=== PATIENT | female | born 1985 | race Caucasian/White ===

== ENCOUNTER → 2024-03-27 11:19 | Outpatient (REF) | payer BC, SELFPAY ==
[2024-03-27 12:28] LABS: % Basophils 0.6 % (0-2); % Eosinophils 3.3 % (0-6); % Immature Granulocytes 0.2 % (0-0.5); % Lymphocytes 34.1 % (20.5-51.1); % Neutrophils 51.8 % (42.2-75.2); Absolute Eosinophils 0.2 10^3/uL (0-0.7); Absolute Lymphocytes 1.8 10^3/uL (1.2-3.4); Absolute Monocytes 0.5 10^3/uL (0.1-0.6); Absolute Neutrophils 2.8 10^3/uL (1.4-6.5); Hematocrit 34.3 % (37.0-47.0); Hemoglobin 10.9 g/dL (12.0-16.0); Mean Corp Hgb Conc. 31.8 g/dL (33.0-37.0); Mean Corpuscular Hgb 23.7 pg (27.0-31.0); Mean Corpuscular Volume 74.6 fL (81.0-99.0); Mean Platelet Volume 9.5 fL (7.4-10.4); Nucleated Red Blood Cells % 0 %; Platelet Count 381 10^3/uL (130-400); Red Cell Dist. Width 16.5 % (11.5-14.5); White Blood Cell Count 5.4 10^3/uL (4.8-10.8)
[2024-03-27 13:31] LABS: ALT (SGPT) 63 U/L (0-35); AST (SGOT) 50 U/L (14-36); Albumin 4.3 g/dl (3.5-5.0); Alkaline Phosphatase 83 U/L (38-126); Blood Urea Nitrogen 13 mg/dl (7-17); Calcium 9.1 mg/dl (8.4-10.2); Carbon Dioxide 22 mmol/L (22-30); Chloride 108 mmol/L (98-107); Glucose 80 mg/dl (70-99); HDL Cholesterol 67 mg/dl; Iron 37 ug/dl (37-170); LDL Cholesterol, Calculated 37 mg/dl; Potassium 4.5 mmol/L (3.5-5.1); Sodium 139 mmol/L (135-145); Total Bilirubin 0.3 mg/dl (0.2-1.3); Total Cholesterol 117 mg/dl (50-199); Total Protein 6.6 g/dl (6.3-8.2); Triglyceride 66 mg/dl (10-149); Very Low Density Lipoprotein 13 mg/dl (0-30); eGFR > 60.00
[2024-03-27 13:40] LABS: Percent Saturation 7 % (20-50); Total Iron Binding Capacity 476 ug/dl (265-497)
[2024-03-27 13:41] LABS: Vitamin D, 25-OH*** 95.2 ng/mL (30-80)
[2024-03-27 13:55] LABS: TSH Reflex To Free T4 0.04 uIU/ml (0.47-4.68)
[2024-03-27 13:58] LABS: Ferritin 4.5 ng/ml (6.24-137)
[2024-03-27 14:20] LABS: Free T4 0.88 ng/dl (0.78-2.19)
[2024-03-27 14:29] LABS: Folate > 20.0 ng/ml (2.76-20); Vitamin B12 > 1000 pg/ml (239-931)
== END ==
LOC: REG 11:19
PROVIDERS: ATTENDING PHYSICIAN Nurse Practitioner Family
DX: Z00.00 Encounter for general adult medical examination without abnormal findings (principal); Z98.84 Bariatric surgery status; F41.1 Generalized anxiety disorder; E61.1 Iron deficiency; F51.01 Primary insomnia; L65.9 Nonscarring hair loss, unspecified
CPT/HCPCS: 36415; 80053; 80061; 82306; 82607; 82728; 82746; 83540; 83550; 84439; 84443; 85025

== ENCOUNTER → 2024-04-16 07:36 | Outpatient (REF) | payer BC, SELFPAY ==
[2024-04-16 08:50] LABS: ALT (SGPT) 63 U/L (0-35); AST (SGOT) 53 U/L (14-36); Albumin 4.1 g/dl (3.5-5.0); Alkaline Phosphatase 84 U/L (38-126); Blood Urea Nitrogen 15 mg/dl (7-17); Calcium 9.2 mg/dl (8.4-10.2); Carbon Dioxide 21 mmol/L (22-30); Chloride 107 mmol/L (98-107); Glucose 83 mg/dl (70-99); Potassium 4.3 mmol/L (3.5-5.1); Sodium 137 mmol/L (135-145); Total Bilirubin 0.2 mg/dl (0.2-1.3); Total Protein 6.5 g/dl (6.3-8.2); eGFR > 60.00
[2024-04-16 09:20] LABS: TSH Reflex To Free T4 0.03 uIU/ml (0.47-4.68)
[2024-04-16 09:48] LABS: Free T4 1.18 ng/dl (0.78-2.19)
[2024-04-16 17:15] LABS: Hepatitis B Surface Antigen Negative (Negative)
[2024-04-16 19:08] LABS: Hepatitis C Antibody Negative (Negative)
[2024-04-18 11:59] LABS: Thyroglobulin Antibodies <0.9 IU/mL (0.0-4.0)
[2024-04-18 19:44] LABS: EBV-VCA IgM Antibodies 18.7 U/mL (0.0-43.9)
[2024-04-18 19:54] LABS: CMV IgM Antibody <8.0 AU/mL (<=29.9)
== END ==
LOC: REG 07:36
PROVIDERS: ATTENDING PHYSICIAN Nurse Practitioner Family; REFERRING PHYSICIAN Internal Medicine Hematology & Oncology
DX: R79.89 Other specified abnormal findings of blood chemistry (principal)
CPT/HCPCS: 36415; 80053; 84439; 84443; 86376; 86645; 86665; 86800; 86803; 87340

== ENCOUNTER → 2024-04-17 13:04 | Outpatient (REF) | payer BC, SELFPAY ==
[2024-04-17 13:37] LABS: % Basophils 0.7 % (0-2); % Eosinophils 6.9 % (0-6); % Immature Granulocytes 0.2 % (0-0.5); % Lymphocytes 36.7 % (20.5-51.1); % Monocytes 12.4 % (1.7-9.3); % Neutrophils 43.1 % (42.2-75.2); Absolute Eosinophils 0.4 10^3/uL (0-0.7); Absolute Monocytes 0.7 10^3/uL (0.1-0.6); Absolute Neutrophils 2.4 10^3/uL (1.4-6.5); Hematocrit 33.8 % (37.0-47.0); Hemoglobin 10.7 g/dL (12.0-16.0); Mean Corp Hgb Conc. 31.7 g/dL (33.0-37.0); Mean Corpuscular Hgb 23.2 pg (27.0-31.0); Mean Corpuscular Volume 73.2 fL (81.0-99.0); Mean Platelet Volume 9.4 fL (7.4-10.4); Nucleated Red Blood Cells % 0 %; Platelet Count 381 10^3/uL (130-400); Red Blood Cell Count 4.62 10^6/uL (4.20-5.40); Red Cell Dist. Width 16.4 % (11.5-14.5); White Blood Cell Count 5.5 10^3/uL (4.8-10.8)
[2024-04-17 14:30] LABS: Iron < 20 ug/dl (37-170)
[2024-04-17 14:31] LABS: Total Iron Binding Capacity 456 ug/dl (265-497)
[2024-04-17 14:40] LABS: FSH 2.5 mIU/ml
[2024-04-17 14:55] LABS: Estradiol 399.9 pg/ml
== END ==
LOC: REG 13:04
PROVIDERS: ATTENDING PHYSICIAN Internal Medicine Hematology & Oncology; FAMILY PHYSICIAN Nurse Practitioner Family
DX: D50.9 Iron deficiency anemia, unspecified (principal)
CPT/HCPCS: 36415; 82024; 82670; 82728; 83001; 83002; 83540; 83550; 85025

== ENCOUNTER 2024-05-08 10:24 | Outpatient (RCR) | payer BC, SELFPAY ==
[2024-05-01 14:12] VITALS: BP 112/68
[2024-05-01] MEDS: INJECTAFER 265 MG IV (14:27)
[2024-05-08 10:25] VITALS: BP 122/76
[2024-05-08] MEDS: INJECTAFER 265 MG IV (10:51)
[2024-05-08 11:29] VITALS: BP 112/66
== END 2024-05-16 23:59 | disposition home or self-care (01) ==
LOC: OID 10:24
PROVIDERS: ATTENDING PHYSICIAN Internal Medicine Hematology & Oncology
DX: D50.9 Iron deficiency anemia, unspecified (principal)
CPT/HCPCS: 96365; J1439

== ENCOUNTER → 2024-05-13 10:00 | Outpatient (REF) | payer BC, SELFPAY ==
[2024-05-13 12:59] LABS: Glucose 76 mg/dl (70-99)
[2024-05-13 13:14] LABS: Beta HCG Quantitative < 2.39 mIU/ml; Prolactin 6.7 ng/ml (3.0-18.6)
[2024-05-13 13:29] LABS: Testosterone, Total 19.2 ng/dl
[2024-05-13 13:52] LABS: Glycohemoglobin (HgbA1c) 4.6 % (4.0-5.6)
[2024-05-14 23:55] LABS: Sex Hormone Binding Globulin 140 nmol/L (25-122)
[2024-05-14 23:58] LABS: DHEA Sulfate 100 ug/dL (61-337)
== END ==
LOC: REG 10:00
PROVIDERS: ATTENDING PHYSICIAN Obstetrics & Gynecology; FAMILY PHYSICIAN Nurse Practitioner Family; OTHER PHYSICIAN Physician Assistant; REFERRING PHYSICIAN Internal Medicine Hematology & Oncology
DX: N91.4 Secondary oligomenorrhea (principal)
CPT/HCPCS: 36415; 82627; 82947; 83036; 84146; 84270; 84403; 84702

== ENCOUNTER → 2024-06-05 07:43 | Outpatient (REF) | payer BC, SELFPAY | LOC: RAD 07:43 | PROVIDERS: ATTENDING PHYSICIAN Nurse Practitioner Family; FAMILY PHYSICIAN Nurse Practitioner Family; REFERRING PHYSICIAN Family Medicine | DX: R79.89 Other specified abnormal findings of blood chemistry (principal) | CPT/HCPCS: 76700 ==

== ENCOUNTER → 2024-06-24 09:21 | Outpatient (REF) | payer BC, SELFPAY ==
[2024-06-24 10:59] LABS: Hematocrit 42.9 % (37.0-47.0); Hemoglobin 14.2 g/dL (12.0-16.0); Mean Corp Hgb Conc. 33.1 g/dL (33.0-37.0); Mean Corpuscular Hgb 28.6 pg (27.0-31.0); Mean Corpuscular Volume 86.3 fL (81.0-99.0); Mean Platelet Volume 9.8 fL (7.4-10.4); Platelet Count 286 10^3/uL (130-400); Red Blood Cell Count 4.97 10^6/uL (4.20-5.40); White Blood Cell Count 6.1 10^3/uL (4.8-10.8)
[2024-06-24 11:24] LABS: Iron 92 ug/dl (37-170)
[2024-06-24 11:25] LABS: % Basophils 0.2 % (0-2); % Eosinophils 2.6 % (0-6); % Immature Granulocytes 0.2 % (0-0.5); % Lymphocytes 43.1 % (20.5-51.1); % Monocytes 9.2 % (1.7-9.3); % Neutrophils 44.7 % (42.2-75.2); Absolute Eosinophils 0.2 10^3/uL (0-0.7); Absolute Lymphocytes 2.6 10^3/uL (1.2-3.4); Absolute Monocytes 0.6 10^3/uL (0.1-0.6); Absolute Neutrophils 2.7 10^3/uL (1.4-6.5); Nucleated Red Blood Cells % 0 %
[2024-06-24 11:35] LABS: Percent Saturation 27 % (20-50); Total Iron Binding Capacity 335 ug/dl (265-497)
[2024-06-24 12:01] LABS: Ferritin 43.5 ng/ml (6.24-137)
== END ==
LOC: REG 09:21
PROVIDERS: ATTENDING PHYSICIAN Internal Medicine Hematology & Oncology
DX: D50.9 Iron deficiency anemia, unspecified (principal)
CPT/HCPCS: 36415; 82728; 83540; 83550; 85025

== ENCOUNTER → 2024-07-02 12:41 | Outpatient (REF) | payer BC, SELFPAY ==
[2024-07-02 14:04] LABS: % Basophils 0.4 % (0-2); % Eosinophils 1.7 % (0-6); % Immature Granulocytes 0.2 % (0-0.5); % Lymphocytes 44.4 % (20.5-51.1); % Monocytes 9.1 % (1.7-9.3); % Neutrophils 44.2 % (42.2-75.2); Absolute Eosinophils 0.1 10^3/uL (0-0.7); Absolute Lymphocytes 2.3 10^3/uL (1.2-3.4); Absolute Monocytes 0.5 10^3/uL (0.1-0.6); Absolute Neutrophils 2.3 10^3/uL (1.4-6.5); Hematocrit 42.5 % (37.0-47.0); Mean Corp Hgb Conc. 32.9 g/dL (33.0-37.0); Mean Corpuscular Hgb 27.7 pg (27.0-31.0); Mean Corpuscular Volume 84.2 fL (81.0-99.0); Mean Platelet Volume 9.3 fL (7.4-10.4); Nucleated Red Blood Cells % 0 %; Platelet Count 356 10^3/uL (130-400); Red Blood Cell Count 5.05 10^6/uL (4.20-5.40); Red Cell Dist. Width 22.3 % (11.5-14.5); White Blood Cell Count 5.2 10^3/uL (4.8-10.8)
[2024-07-02 14:18] LABS: ALT (SGPT) 99 U/L (0-35); AST (SGOT) 85 U/L (14-36); Albumin 4.1 g/dl (3.5-5.0); Alkaline Phosphatase 92 U/L (38-126); Blood Urea Nitrogen 12 mg/dl (7-17); Calcium 9.2 mg/dl (8.4-10.2); Carbon Dioxide 28 mmol/L (22-30); Chloride 103 mmol/L (98-107); Glucose 79 mg/dl (70-99); Potassium 4.2 mmol/L (3.5-5.1); Sodium 141 mmol/L (135-145); Total Bilirubin < 0.1 mg/dl (0.2-1.3); Total Protein 6.4 g/dl (6.3-8.2); eGFR > 60.00
[2024-07-02 14:34] LABS: Free T3 2.93 pg/ml (2.77-5.27); Free T4 0.68 ng/dl (0.78-2.19)
[2024-07-02 14:44] LABS: Normal RBC Morphology No
[2024-07-02 14:45] LABS: Acanthocytes Slight; Ovalocytes Slight
[2024-07-02 14:46] LABS: Anisocytosis 2+
[2024-07-02 14:47] LABS: TSH < 0.02 uIU/ml (0.47-4.68)
[2024-07-05 04:17] LABS: Thyroglobulin Antibodies <0.9 IU/mL (0.0-4.0); Thyroid Peroxidase Ab (TPO) 0.9 IU/mL (0.0-9.0)
== END ==
LOC: REG 12:41
PROVIDERS: ATTENDING PHYSICIAN Physician Assistant; FAMILY PHYSICIAN Family Medicine; OTHER PHYSICIAN Internal Medicine Hematology & Oncology
DX: E05.90 Thyrotoxicosis, unspecified without thyrotoxic crisis or storm (principal)
CPT/HCPCS: 36415; 80053; 83520; 84439; 84443; 84445; 84480; 84481; 85025; 86376; 86800

== ENCOUNTER → 2024-08-05 07:00 | Outpatient (REF) | payer BC, SELFPAY | LOC: RAD 07:00 | PROVIDERS: ATTENDING PHYSICIAN Physician Assistant; FAMILY PHYSICIAN Family Medicine; REFERRING PHYSICIAN Internal Medicine Hematology & Oncology | DX: E05.90 Thyrotoxicosis, unspecified without thyrotoxic crisis or storm (principal) | CPT/HCPCS: 78014; A9516 ==

== ENCOUNTER → 2024-09-11 13:22 | Outpatient (REF) | payer BC, SELFPAY | LOC: RAD 13:22 | PROVIDERS: ATTENDING PHYSICIAN Physician Assistant; FAMILY PHYSICIAN Family Medicine; REFERRING PHYSICIAN Internal Medicine Hematology & Oncology | DX: E05.90 Thyrotoxicosis, unspecified without thyrotoxic crisis or storm (principal) | CPT/HCPCS: 76536 ==

== ENCOUNTER → 2024-09-23 07:23 | Outpatient (REF) | payer BC, SELFPAY ==
[2024-09-23 08:35] LABS: % Basophils 0.5 % (0-2); % Eosinophils 7.9 % (0-6); % Immature Granulocytes 0.2 % (0-0.5); % Lymphocytes 41.3 % (20.5-51.1); % Monocytes 7.9 % (1.7-9.3); % Neutrophils 42.2 % (42.2-75.2); Absolute Eosinophils 0.3 10^3/uL (0-0.7); Absolute Lymphocytes 1.7 10^3/uL (1.2-3.4); Absolute Monocytes 0.3 10^3/uL (0.1-0.6); Absolute Neutrophils 1.7 10^3/uL (1.4-6.5); Hematocrit 39.8 % (37.0-47.0); Hemoglobin 13.2 g/dL (12.0-16.0); Mean Corp Hgb Conc. 33.2 g/dL (33.0-37.0); Mean Corpuscular Hgb 30.8 pg (27.0-31.0); Mean Corpuscular Volume 92.8 fL (81.0-99.0); Mean Platelet Volume 9.9 fL (7.4-10.4); Nucleated Red Blood Cells % 0 %; Platelet Count 308 10^3/uL (130-400); Red Blood Cell Count 4.29 10^6/uL (4.20-5.40); Red Cell Dist. Width 13.7 % (11.5-14.5); White Blood Cell Count 4.1 10^3/uL (4.8-10.8)
[2024-09-23 09:03] LABS: ALT (SGPT) 71 U/L (0-35); AST (SGOT) 54 U/L (14-36); Albumin 3.8 g/dl (3.5-5.0); Alkaline Phosphatase 68 U/L (38-126); Blood Urea Nitrogen 11 mg/dl (7-17); Calcium 8.8 mg/dl (8.4-10.2); Carbon Dioxide 22 mmol/L (22-30); Chloride 107 mmol/L (98-107); Glucose 82 mg/dl (70-99); Potassium 4.3 mmol/L (3.5-5.1); Sodium 139 mmol/L (135-145); Total Bilirubin 0.3 mg/dl (0.2-1.3); Total Protein 6.2 g/dl (6.3-8.2); eGFR > 60.00
[2024-09-23 09:19] LABS: Free T3 3.45 pg/ml (2.77-5.27); Free T4 0.99 ng/dl (0.78-2.19)
[2024-09-23 09:33] LABS: TSH < 0.02 uIU/ml (0.47-4.68)
[2024-09-24 23:26] LABS: Total T3 (Sendout) 110 ng/dL (80-200)
== END ==
LOC: REG 07:23
PROVIDERS: ATTENDING PHYSICIAN Physician Assistant; FAMILY PHYSICIAN Family Medicine; OTHER PHYSICIAN Internal Medicine Hematology & Oncology
DX: E06.1 Subacute thyroiditis (principal); E05.90 Thyrotoxicosis, unspecified without thyrotoxic crisis or storm
CPT/HCPCS: 36415; 80053; 84439; 84443; 84480; 84481; 85025

== ENCOUNTER → 2024-09-29 07:07 | Outpatient (REF) | payer BC, SELFPAY ==
[2024-09-29 08:08] LABS: % Basophils 0.4 % (0-2); % Eosinophils 6.3 % (0-6); % Immature Granulocytes 0.2 % (0-0.5); % Lymphocytes 42.3 % (20.5-51.1); % Monocytes 9.5 % (1.7-9.3); % Neutrophils 41.3 % (42.2-75.2); Absolute Eosinophils 0.3 10^3/uL (0-0.7); Absolute Monocytes 0.4 10^3/uL (0.1-0.6); Absolute Neutrophils 1.9 10^3/uL (1.4-6.5); Hematocrit 43.5 % (37.0-47.0); Hemoglobin 14.4 g/dL (12.0-16.0); Mean Corp Hgb Conc. 33.1 g/dL (33.0-37.0); Mean Corpuscular Hgb 30.8 pg (27.0-31.0); Mean Corpuscular Volume 93.1 fL (81.0-99.0); Mean Platelet Volume 9.8 fL (7.4-10.4); Nucleated Red Blood Cells % 0 %; Platelet Count 351 10^3/uL (130-400); Red Blood Cell Count 4.67 10^6/uL (4.20-5.40); Red Cell Dist. Width 13.3 % (11.5-14.5); White Blood Cell Count 4.6 10^3/uL (4.8-10.8)
[2024-09-29 08:46] LABS: Iron 84 ug/dl (37-170)
[2024-09-29 08:55] LABS: Percent Saturation 23 % (20-50); Total Iron Binding Capacity 355 ug/dl (265-497)
[2024-09-29 09:00] LABS: Free T4 0.98 ng/dl (0.78-2.19); Luteinizing Hormone 3.58 mIU/ml; Prolactin 15.4 ng/ml (3.0-18.6)
[2024-09-29 09:14] LABS: Cortisol, Random 16.4 ug/dl; Estradiol 204.1 pg/ml; TSH 2.37 uIU/ml (0.47-4.68)
[2024-09-29 09:20] LABS: Ferritin 24.6 ng/ml (6.24-137)
[2024-09-29 10:02] LABS: FSH 3.7 mIU/ml
[2024-10-01 01:34] LABS: IGF-1 Z Score Calculation -0.5; Insulin-like Growth Factor I 132 ng/mL (79-276)
[2024-10-01 02:31] LABS: Adrenocorticotropic Hormone 42.6 pg/mL (7.2-63.3)
== END ==
LOC: REG 07:07
PROVIDERS: ATTENDING PHYSICIAN Internal Medicine Hematology & Oncology; FAMILY PHYSICIAN Physician Assistant; REFERRING PHYSICIAN Family Medicine
DX: D50.9 Iron deficiency anemia, unspecified (principal); K76.0 Fatty (change of) liver, not elsewhere classified; E05.90 Thyrotoxicosis, unspecified without thyrotoxic crisis or storm
CPT/HCPCS: 36415; 82024; 82533; 82670; 82728; 83001; 83002; 83540; 83550; 84146; 84305; 84439; 84443; 85025

== ENCOUNTER → 2024-10-21 07:03 | Outpatient (REF) | payer BC, SELFPAY ==
[2024-10-21 08:45] LABS: Free T3 3.19 pg/ml (2.77-5.27); Free T4 0.95 ng/dl (0.78-2.19)
[2024-10-21 08:58] LABS: TSH 1.29 uIU/ml (0.47-4.68)
[2024-10-22 19:11] LABS: Total T3 (Sendout) 98 ng/dL (80-200)
== END ==
LOC: REG 07:03
PROVIDERS: ATTENDING PHYSICIAN Physician Assistant; FAMILY PHYSICIAN Family Medicine; OTHER PHYSICIAN Internal Medicine Hematology & Oncology
DX: E05.90 Thyrotoxicosis, unspecified without thyrotoxic crisis or storm (principal); E06.1 Subacute thyroiditis
CPT/HCPCS: 36415; 84439; 84443; 84480; 84481

== ENCOUNTER → 2024-11-30 14:44 | Outpatient (REF) | payer BC, SELFPAY ==
[2024-11-30 15:34] LABS: % Basophils 0.1 % (0-2); % Eosinophils 3.5 % (0-6); % Immature Granulocytes 0.3 % (0-0.5); % Lymphocytes 35.4 % (20.5-51.1); % Monocytes 7.6 % (1.7-9.3); % Neutrophils 53.1 % (42.2-75.2); Absolute Eosinophils 0.3 10^3/uL (0-0.7); Absolute Lymphocytes 2.5 10^3/uL (1.2-3.4); Absolute Monocytes 0.5 10^3/uL (0.1-0.6); Absolute Neutrophils 3.8 10^3/uL (1.4-6.5); Hematocrit 42.7 % (37.0-47.0); Hemoglobin 14.1 g/dL (12.0-16.0); Mean Corpuscular Hgb 30.1 pg (27.0-31.0); Nucleated Red Blood Cells % 0 %; Platelet Count 334 10^3/uL (130-400); Red Blood Cell Count 4.69 10^6/uL (4.20-5.40); Red Cell Dist. Width 12.6 % (11.5-14.5); White Blood Cell Count 7.1 10^3/uL (4.8-10.8)
[2024-11-30 15:38] LABS: Iron 65 ug/dl (37-170)
[2024-11-30 15:47] LABS: Percent Saturation 20 % (20-50); Total Iron Binding Capacity 314 ug/dl (265-497)
[2024-11-30 16:11] LABS: Ferritin 64.3 ng/ml (6.24-137)
== END ==
LOC: REG 14:44
PROVIDERS: ATTENDING PHYSICIAN Internal Medicine Hematology & Oncology; FAMILY PHYSICIAN Family Medicine
DX: D50.9 Iron deficiency anemia, unspecified (principal); K76.0 Fatty (change of) liver, not elsewhere classified
CPT/HCPCS: 36415; 82728; 83540; 83550; 85025

== ENCOUNTER → 2025-01-25 15:39 | Outpatient (REF) | payer BC, SELFPAY ==
[2025-01-25 17:01] LABS: Hematocrit 43.4 % (37.0-47.0); Hemoglobin 14.3 g/dL (12.0-16.0); Mean Corp Hgb Conc. 32.9 g/dL (33.0-37.0); Mean Corpuscular Hgb 30.5 pg (27.0-31.0); Mean Corpuscular Volume 92.5 fL (81.0-99.0); Mean Platelet Volume 9.7 fL (7.4-10.4); Platelet Count 251 10^3/uL (130-400); Red Blood Cell Count 4.69 10^6/uL (4.20-5.40); Red Cell Dist. Width 14.1 % (11.5-14.5); White Blood Cell Count 7.2 10^3/uL (4.8-10.8)
[2025-01-25 17:06] LABS: Total Iron Binding Capacity 392 ug/dl (265-497)
[2025-01-25 17:33] LABS: Ferritin 31.9 ng/ml (6.24-137)
[2025-01-25 18:17] LABS: Atypical Lymphocytes 13 %; Band Neutrophils 1 % (0-3); Lymphocytes 53 % (20-51); Monocytes 6 % (2-9); Normal RBC Morphology Yes; Platelets Checked Yes; Segmented Neutrophils 27 % (42-75); Total Cells Counted 100
== END ==
LOC: REG 15:39
PROVIDERS: ATTENDING PHYSICIAN Internal Medicine Hematology & Oncology; FAMILY PHYSICIAN Family Medicine
DX: D50.9 Iron deficiency anemia, unspecified (principal); K76.0 Fatty (change of) liver, not elsewhere classified
CPT/HCPCS: 36415; 82728; 83550; 85025

== ENCOUNTER → 2025-02-01 08:52 | Outpatient (REF) | payer BC, SELFPAY | LOC: CPAP 08:52 | PROVIDERS: ATTENDING PHYSICIAN Student in an Organized Health Care Education/Training Program | DX: Z11.3 Encounter for screening for infections with a predominantly sexual mode of transmission (principal) | CPT/HCPCS: 87491; 87591 ==

== ENCOUNTER → 2025-02-12 11:21 | Outpatient (REF) | payer BC, SELFPAY ==
[2025-02-12 12:50] LABS: Urine Albumin Negative (Neg - Trace); Urine Bilirubin Negative (Negative); Urine Character Clear (Clear); Urine Color Yellow; Urine Glucose Negative (Negative); Urine Ketone Negative (Negative); Urine Leukocyte Negative (Negative); Urine Nitrite Negative (Negative); Urine Occult Blood Negative (Negative); Urine Specific Gravity 1.005 (<1.030); Urine Urobilinogen Negative (Neg - 1+)
[2025-02-12 12:55] LABS: % Basophils 0.6 % (0-2); % Eosinophils 1.2 % (0-6); % Immature Granulocytes 0.3 % (0-0.5); % Lymphocytes 39.6 % (20.5-51.1); % Monocytes 8.7 % (1.7-9.3); % Neutrophils 49.6 % (42.2-75.2); Absolute Eosinophils 0.1 10^3/uL (0-0.7); Absolute Lymphocytes 2.9 10^3/uL (1.2-3.4); Absolute Monocytes 0.6 10^3/uL (0.1-0.6); Absolute Neutrophils 3.6 10^3/uL (1.4-6.5); Hematocrit 42.3 % (37.0-47.0); Hemoglobin 13.9 g/dL (12.0-16.0); Mean Corp Hgb Conc. 32.9 g/dL (33.0-37.0); Mean Corpuscular Hgb 30.1 pg (27.0-31.0); Mean Corpuscular Volume 91.6 fL (81.0-99.0); Mean Platelet Volume 9.7 fL (7.4-10.4); Nucleated Red Blood Cells % 0 %; Platelet Count 306 10^3/uL (130-400); Red Blood Cell Count 4.62 10^6/uL (4.20-5.40); Red Cell Dist. Width 13.2 % (11.5-14.5); White Blood Cell Count 7.3 10^3/uL (4.8-10.8)
[2025-02-12 14:17] LABS: Glycohemoglobin (HgbA1c) 4.4 % (4.0-5.6)
[2025-02-12 14:25] LABS: Rubella Positive
[2025-02-12 15:20] LABS: Hepatitis B Surface Antigen Negative (Negative)
[2025-02-12 15:39] LABS: HIV Combo Negative (Negative); Hepatitis B Core Ab, Total Negative (Negative); Hepatitis B Surface Antibody Positive; Hepatitis C Antibody Negative (Negative)
== END ==
LOC: REG 11:21
PROVIDERS: ATTENDING PHYSICIAN Nurse Practitioner Family; FAMILY PHYSICIAN Family Medicine
DX: Z32.01 Encounter for pregnancy test, result positive (principal)
CPT/HCPCS: 36415; 81003; 83036; 84702; 85025; 86704; 86706; 86762; 86780; 86803; 86850; 86900; 86901; 87086; 87340; 87389

== ENCOUNTER → 2025-03-02 18:05 | Outpatient (REF) | payer BC, SELFPAY | LOC: PNTC 18:05 | PROVIDERS: ATTENDING PHYSICIAN Nurse Practitioner Family | DX: Z34.90 Encounter for supervision of normal pregnancy, unspecified, unspecified trimester (principal) | CPT/HCPCS: 76801 ==

== ENCOUNTER → 2025-03-25 17:46 | Outpatient (REF) | payer BC, SELFPAY ==
[2025-03-25 18:31] LABS: Hematocrit 37.0 % (37.0-47.0); Hemoglobin 12.5 g/dL (12.0-16.0); Mean Corp Hgb Conc. 33.8 g/dL (33.0-37.0); Mean Corpuscular Volume 88.7 fL (81.0-99.0); Nucleated Red Blood Cells % 0 %; Platelet Count 238 10^3/uL (130-400); Red Cell Dist. Width 13.2 % (11.5-14.5)
[2025-03-25 18:51] LABS: Iron 89 ug/dl (37-170)
[2025-03-25 19:00] LABS: Total Iron Binding Capacity 361 ug/dl (265-497)
[2025-03-25 19:31] LABS: Ferritin 19.5 ng/ml (6.24-137)
== END ==
LOC: PNTC 17:46
PROVIDERS: ATTENDING PHYSICIAN Internal Medicine Hematology & Oncology; FAMILY PHYSICIAN Family Medicine
DX: D50.9 Iron deficiency anemia, unspecified (principal); K76.0 Fatty (change of) liver, not elsewhere classified
CPT/HCPCS: 36415; 82728; 83540; 83550; 85025

== ENCOUNTER 2025-03-31 12:05 | Observation (INO) | payer BC, SELFPAY | END 2025-03-31 12:06 | disposition home or self-care (01) | LOC: PNTC-IN 12:05 | PROVIDERS: ADMITTING PHYSICIAN Obstetrics & Gynecology; ATTENDING PHYSICIAN Student in an Organized Health Care Education/Training Program | DX: Z36.82 Encounter for antenatal screening for nuchal translucency (principal); Z36.0 Encounter for antenatal screening for chromosomal anomalies; O09.511 Supervision of elderly primigravida, first trimester; Z3A.13 13 weeks gestation of pregnancy | CPT/HCPCS: 76801; 76813; G0378 ==

== ENCOUNTER → 2025-04-19 13:38 | Outpatient (REF) | payer BC, SELFPAY ==
[2025-04-19 14:00] LABS: Hematocrit 36.6 % (37.0-47.0); Hemoglobin 12.6 g/dL (12.0-16.0); Mean Corp Hgb Conc. 34.4 g/dL (33.0-37.0); Mean Corpuscular Volume 88.4 fL (81.0-99.0); Nucleated Red Blood Cells % 0 %; Platelet Count 247 10^3/uL (130-400); Red Cell Dist. Width 14.0 % (11.5-14.5)
[2025-04-19 14:25] LABS: Iron 111 ug/dl (37-170)
[2025-04-19 14:34] LABS: Total Iron Binding Capacity 367 ug/dl (265-497)
[2025-04-19 15:01] LABS: Ferritin 17.4 ng/ml (6.24-137)
== END ==
LOC: PNTC 13:38
PROVIDERS: ATTENDING PHYSICIAN Internal Medicine Hematology & Oncology
DX: D50.9 Iron deficiency anemia, unspecified (principal); K76.0 Fatty (change of) liver, not elsewhere classified
CPT/HCPCS: 36415; 82728; 83540; 83550; 85025

== ENCOUNTER → 2025-04-28 16:25 | Outpatient (REF) | payer BC, SELFPAY | LOC: PNTC 16:25 | PROVIDERS: ATTENDING PHYSICIAN Obstetrics & Gynecology | DX: Z34.92 Encounter for supervision of normal pregnancy, unspecified, second trimester (principal) | CPT/HCPCS: 36415; 82105 ==

== ENCOUNTER → 2025-04-29 16:02 | Outpatient (REF) | payer BC, SELFPAY | LOC: PNTC 16:02 | PROVIDERS: ATTENDING PHYSICIAN Student in an Organized Health Care Education/Training Program | DX: O99.210 Obesity complicating pregnancy, unspecified trimester (principal); O09.529 Supervision of elderly multigravida, unspecified trimester; O35.5XX0 Maternal care for (suspected) damage to fetus by drugs, not applicable or unspecified; O34.219 Maternal care for unspecified type scar from previous cesarean delivery; O43.219 Placenta accreta, unspecified trimester | CPT/HCPCS: 76805; 93976 ==

== ENCOUNTER → 2025-05-26 06:58 | Outpatient (REF) | payer BC, SELFPAY ==
[2025-05-26 08:18] LABS: Hematocrit 37.4 % (37.0-47.0); Hemoglobin 12.9 g/dL (12.0-16.0); Mean Corp Hgb Conc. 34.5 g/dL (33.0-37.0); Mean Corpuscular Volume 91.2 fL (81.0-99.0); Nucleated Red Blood Cells % 0 %; Platelet Count 239 10^3/uL (130-400); Red Cell Dist. Width 14.0 % (11.5-14.5)
[2025-05-26 08:37] LABS: Glucose 73 mg/dl (70-99); HDL Cholesterol 86 mg/dl; Iron 158 ug/dl (37-170); LDL Cholesterol, Calculated 28 mg/dl; Very Low Density Lipoprotein 17 mg/dl (0-30)
[2025-05-26 08:44] LABS: Ferritin 18.0 ng/ml (6.24-137)
[2025-05-26 08:46] LABS: Total Iron Binding Capacity 385 ug/dl (265-497)
== END ==
LOC: REG 06:58
PROVIDERS: ATTENDING PHYSICIAN Internal Medicine Hematology & Oncology; FAMILY PHYSICIAN Nurse Practitioner Adult Health
DX: Z00.00 Encounter for general adult medical examination without abnormal findings (principal); D50.9 Iron deficiency anemia, unspecified; K76.0 Fatty (change of) liver, not elsewhere classified
CPT/HCPCS: 36415; 80061; 82728; 82947; 83540; 83550; 85025

== ENCOUNTER → 2025-06-02 16:24 | Outpatient (REF) | payer BC, SELFPAY | LOC: PNTC 16:24 | PROVIDERS: ATTENDING PHYSICIAN Student in an Organized Health Care Education/Training Program | DX: O99.210 Obesity complicating pregnancy, unspecified trimester (principal); O09.529 Supervision of elderly multigravida, unspecified trimester; O34.219 Maternal care for unspecified type scar from previous cesarean delivery; O44.20 Partial placenta previa NOS or without hemorrhage, unspecified trimester; O99.320 Drug use complicating pregnancy, unspecified trimester | CPT/HCPCS: 76811; 76817; 93976 ==

== ENCOUNTER → 2025-07-02 10:32 | Outpatient (REF) | payer BC, SELFPAY ==
[2025-07-02 12:21] LABS: Hematocrit 38.0 % (37.0-47.0); Hemoglobin 12.3 g/dL (12.0-16.0); Mean Corp Hgb Conc. 32.4 g/dL (33.0-37.0); Mean Corpuscular Volume 95.5 fL (81.0-99.0); Nucleated Red Blood Cells % 0 %; Platelet Count 247 10^3/uL (130-400); Red Cell Dist. Width 13.5 % (11.5-14.5)
[2025-07-02 12:41] LABS: 1 Hour after 50gm 84 mg/dl
== END ==
LOC: REG 10:32
PROVIDERS: ATTENDING PHYSICIAN Obstetrics & Gynecology; FAMILY PHYSICIAN Family Medicine
DX: Z13.1 Encounter for screening for diabetes mellitus (principal); O09.523 Supervision of elderly multigravida, third trimester
CPT/HCPCS: 36415; 82950; 85025; 86780

== ENCOUNTER → 2025-07-08 16:45 | Outpatient (REF) | payer BC, SELFPAY | LOC: PNTC 16:45 | PROVIDERS: ATTENDING PHYSICIAN Student in an Organized Health Care Education/Training Program | DX: O09.522 Supervision of elderly multigravida, second trimester (principal); O99.212 Obesity complicating pregnancy, second trimester; O34.219 Maternal care for unspecified type scar from previous cesarean delivery; Z98.84 Bariatric surgery status | CPT/HCPCS: 76816 ==

== ENCOUNTER → 2025-07-12 15:04 | Outpatient (REF) | payer BC, SELFPAY | LOC: PNTC 15:04 | PROVIDERS: ATTENDING PHYSICIAN Obstetrics & Gynecology | DX: O36.8320 Maternal care for abnormalities of the fetal heart rate or rhythm, second trimester, not applicable or unspecified (principal) | CPT/HCPCS: 59025; 76815 ==

== ENCOUNTER → 2025-07-21 11:30 | Outpatient (REF) | payer BC, SELFPAY ==
[2025-07-21 12:12] LABS: Hematocrit 35.6 % (37.0-47.0); Hemoglobin 12.2 g/dL (12.0-16.0); Mean Corp Hgb Conc. 34.3 g/dL (33.0-37.0); Mean Corpuscular Volume 93.9 fL (81.0-99.0); Nucleated Red Blood Cells % 0 %; Platelet Count 249 10^3/uL (130-400); Red Cell Dist. Width 12.9 % (11.5-14.5)
[2025-07-21 12:48] LABS: Iron 58 ug/dl (37-170)
[2025-07-21 12:57] LABS: Total Iron Binding Capacity 531 ug/dl (265-497)
[2025-07-21 13:23] LABS: Ferritin 8.7 ng/ml (6.24-137)
== END ==
LOC: PNTC 11:30
PROVIDERS: ATTENDING PHYSICIAN Internal Medicine Hematology & Oncology
DX: D50.9 Iron deficiency anemia, unspecified (principal); K76.0 Fatty (change of) liver, not elsewhere classified
CPT/HCPCS: 36415; 82728; 83540; 83550; 85025

== ENCOUNTER 2025-08-02 15:49 | Emergency (ER) | payer BC, SELFPAY ==
[2025-08-02 15:51] VITALS: BP 118/79
--- NOTE | 2025-08-02 19:14 | ED.GENMED ---
History of Present Illness
General
Chief Complaint: Problems
Time Seen by Provider: 08/02/25 19:04
History of Present Illness
History of Present Illness:
Patient is a 40-year-old female currently 30 weeks who presents with shortness of breath. Symptoms started around 1 to 2 weeks ago. They have gradually been worsening. She notes that she is experiencing more more dyspnea on
exertion. Denies chest pain. Denies leg swelling. This morning she felt like she may pass out and had to sit down. She was referred in by her toxicology supervisor. She reports a history of iron deficiency anemia and is awaiting an iron infusion. Feels
she cannot fully expand her lungs and that there is pressure on the diaghragm.
Past History
Past History
ED Past Medical History: Psychiatric (Anxiety)
ED Past Surgical History: Other (Bariatric)
Social History
Tobacco: Non-smoker
Alcohol: None
Drug: None
Personal:
Living: with family
Employment: Employed
Phy Exam
Physical Exam
Physical Exam:
GENERAL APPEARANCE: NAD, well developed/ well nourished
EYES lids/conjunctiva normal
EARS/NOSE/THROAT Mucous membranes moist, uvula midline without oral pharyngeal erythema, exudate or swelling
HEAD/NECK normocephalic atraumatic, neck is supple.
RESPIRATORY respiratory effort normal, speaks in full sentences, no accessory muscle use. Lungs clear to auscultation without rhonchi, wheezes, rales
CARDIAC Regular rate and rhythm, no edema.
ABDOMINAL gravid, nontender
MUSCLES/EXTREMITIES No abnormal range of motion, no swelling.
SKIN Warm, pink and dry. No rashes
NEUROLOGICAL Speech is clear and appropriate. Normal level of consciousness. 5/5 strength in all extremities.
PSYCH Normal mood and affect. Judgement/competence is appropriate
Course
Orders/Labs/Results
Orders:
Orders
08/02/25 19:13
Electrocardiogram (*1) Urgent
Reason for Study: Shortness of Breath
CR Chest - 2 Views Urgent
Comment:
Reason For Exam: sob
08/02/25 19:20
Complete Blood Count/With Diff Urgent
Comprehensive Metabolic Panel Urgent
D-Dimer Urgent
NT-proBNP Urgent
Troponin I Urgent
Abnormal Lab Results
08/02/25
19:20
RBC 4.09 L 10^6/uL
(4.20-5.40)
MCH 31.5 H pg
(27.0-31.0)
Absolute Monos (auto) 0.7 H 10^3/uL
(0.1-0.6)
D-Dimer 9.30 H ug/mlFEU
(0.00-0.50)
Sodium 131 L mmol/L
(135-145)
Creatinine 0.4 L mg/dL
(0.6-1.0)
Calcium 8.3 L mg/dl
(8.4-10.2)
AST 38 H U/L
(14-36)
ALT 45 H U/L
(0-35)
Total Protein 6.0 L g/dl
(6.3-8.2)
Albumin 3.3 L g/dl
(3.5-5.0)
08/02/25 19:20
08/02/25 19:20
Vital Signs
Initial and Last Documented VS:
Initial Vital Signs
Temp Pulse Resp BP Pulse Ox
98.3 F 118 22 118/79 99
08/02/25 15:51 08/02/25 15:51 08/02/25 15:51 08/02/25 15:51 08/02/25 15:51
Last Documented Vital Signs
Temp Pulse Resp BP Pulse Ox
98.3 F 118 22 118/79 99
08/02/25 15:51 08/02/25 15:51 08/02/25 15:51 08/02/25 15:51 08/02/25 19:17
Information
Weeks gestation: Weeks: (30)
Location: Location:
*Pulse Oximetry
SaO2: 99
Oxygen Mode of Delivery: Room air
Patient hypoxic: no
*Critical Care Note
Total Time (30-74mins, 75-104mins- exclusive of procedures): Not Applicable
ED Attending Note
ED Attending Note
ED Attending Note:
Patient presents with gradually worsening dyspnea on exertion. She is very well-appearing, saturating well on room air, in no distress. Lungs are clear to auscultation bilaterally. There is clinically no signs of volume overload to suggest
cardiomyopathy. Will check chest x-ray, labs including a D-dimer to rule out PE.
D-dimer is less than 1. She has no hemoptysis. No clinical signs for DVT. PE is not the most likely diagnosis as she is not tachycardic, tachypneic, hypoxic. No hx of PE/dvt. She has no pleuritic chest pain. Most suggestive of -induced
dyspnea. This effectively rules out pulmonary embolism by YEARS criteria.
-
Portions of this chart may have been created with voice recognition software.� Occasional wrong word or��sound alike� substitutions may have occurred due to the inherent limitations of voice recognition software.
Discharge Plan
Departure
Patient Disposition: Home (Routine Discharge)
Date of Disposition: 08/02/25
Time of Disposition: 20:27
Patient with high blood pressure during this ER visit?: No
Discharge Problem:
Shortness of breath during
Prescriptions:
No Action
acetaminophen 325 mg Tablet
650 mg PO Q4HPRN PRN (Reason: mild pain) Qty: 0 0RF
ibuprofen 600 mg Tablet
600 mg PO Q6HPRN PRN (Reason: cramps) Qty: 60 0RF
quetiapine [Seroquel] 100 mg Tablet
100 mg PO DAILY
Women's Daily Combo Pack
1 pkg PO DAILY
Referrals:
Abeba Banuelos DO [Family Provider, Family Practice]
Activity Restrictions/Additional Instructions:
Please follow up closely with your toxicology supervisor. Return to ER with new or worsneing symptoms.
Interventions
Interventions:
*Risk Screen - Suicide Last Done: 08/02/25 15:51
*General Assessment Last Done: 08/02/25 15:51
*Neglect/Abuse Screening Last Done: 08/02/25 15:51
*ED- Fall Risk Assessment Last Done: 08/02/25 20:00
*Nursing Disposition Last Done: 08/02/25 20:50
ED-Female Genitourinary Assessment Last Done: 08/02/25 20:49
Discharge Date and Time
Discharge Date/Time: 08/02/25 20:51
Print Language: TOGOLESE
[2025-08-02 19:25] LABS: Hematocrit 38.6 % (37.0-47.0); Hemoglobin 12.9 g/dL (12.0-16.0); Mean Corp Hgb Conc. 33.4 g/dL (33.0-37.0); Mean Corpuscular Volume 94.4 fL (81.0-99.0); Platelet Count 283 10^3/uL (130-400); Red Cell Dist. Width 12.8 % (11.5-14.5)
[2025-08-02 19:26] LABS: Nucleated Red Blood Cells % 0 %
[2025-08-02 19:51] LABS: D-Dimer 9.30 ug/mlFEU (0.00-0.50)
[2025-08-02 19:53] LABS: ALT (SGPT) 45 U/L (0-35); AST (SGOT) 38 U/L (14-36); Albumin 3.3 g/dl (3.5-5.0); Alkaline Phosphatase 77 U/L (38-126); Blood Urea Nitrogen 7 mg/dl (7-17); Calcium 8.3 mg/dl (8.4-10.2); Carbon Dioxide 22 mmol/L (22-30); Chloride 104 mmol/L (98-107); Glucose 75 mg/dl (70-99); Potassium 3.9 mmol/L (3.5-5.1); Sodium 131 mmol/L (135-145); Total Protein 6.0 g/dl (6.3-8.2); eGFR > 60.00
[2025-08-02 20:02] LABS: Troponin I 0.026 ng/ml
--- NOTE | 2025-08-03 13:21 | ED.ADDNOTE ---
ED Addendum
ED Addendum
ED Addendum Note:
On chart review, patient was found to have a positive ddimer. I called and spoke to patient - she is feeling better and has been resting. She was instructed to return to the ER for CTA of the chest. Discussed with supervisor in charge Chad to expedite imaging
on patient arrival. Called patient back to confirm her plan to go in and get the CT.
== END 2025-08-02 20:51 | disposition home or self-care (01) ==
LOC: EMR 15:49
PROVIDERS: EMERGENCY PHYSICIAN Emergency Medicine; FAMILY PHYSICIAN Family Medicine
DX: O26.893 Other specified pregnancy related conditions, third trimester (principal); R06.02 Shortness of breath; O09.523 Supervision of elderly multigravida, third trimester; Z3A.30 30 weeks gestation of pregnancy
CPT/HCPCS: 99285; 71046; 80053; 83880; 84484; 85025; 85379; 93005

== ENCOUNTER 2025-08-03 18:19 | Observation (INO) | payer BC, SELFPAY ==
[2025-08-03] VITALS (8 sets, daily range): BP systolic 95–119; BP diastolic 60–73; BMI 34.6
[2025-08-03] MEDS: NSS 500 IV (15:16)
--- NOTE | 2025-08-03 15:20 | ED.GENMED ---
History of Present Illness
<Toyin Rosario PA-C - Last Filed: 08/04/25 12:14>
General
Chief Complaint: Breathing Problem
Source: patient
Exam Limitations: none
Time Seen by Provider: 08/03/25 14:53
Nursing documentation reviewed up to this point in time: agreed with
History of Present Illness
History of Present Illness:
Patient is a 40-year-old female currently 30 weeks , who presents with shortness of breath. Patient reports some degree of exertional dyspnea for the past month however acutely worsening over the past 1-2 weeks. Patient denies any
chest pain, fever, or productive cough. She denies any lower leg swelling however does report frequent cramping in her right calf.
She was seen in the emergency department yesterday after experiencing significant dyspnea and lightheadedness. She was discharged home however contacted today stating that her D-dimer was elevated and to return to the emergency department for
imaging.
Patient denies any personal history of blood clots or clotting disorders. No recent travel or recent surgeries.
Patient follows with [facility] for [facility] HOLDER care
Past History
<Toyin Rosario PA-C - Last Filed: 08/04/25 12:14>
Past History
ED Past Medical History: Psychiatric (Anxiety)
ED Past Surgical History: Other (Bariatric)
Social History
Tobacco: Non-smoker
Alcohol: None
Drug: None
Personal:
Living: with family
Employment: Employed
Review of Systems
<Toyin Rosario PA-C - Last Filed: 08/04/25 12:14>
Review of Systems
Allergies reviewed?: Yes
All Other Systems: ROS reviewed and negative except as documented in HPI and ROS
Phy Exam
<Toyin Rosario PA-C - Last Filed: 08/04/25 12:14>
Physical Exam
Physical Exam:
Vitals: Patient's vital signs are stable. Afebrile
General: Patient is well appearing, no acute distress
Skin: Warm and dry, no rashes or lesions
Head: Normocephalic, atraumatic
Throat: Protecting airway
Neck: Normal ROM, no cervical spine tenderness, no meningismus
Cardiac: Regular rate and rhythm, no murmurs.
Pulm: Normal respiratory effort. Lungs clear bilaterally
Abdomen: Gravid abdomen. No abdominal tenderness.
Extremities: No pitting edema of bilateral lower extremities. Mild tenderness to right calf without overlying skin changes. Negative Homans' sign bilaterally
Neuro: AAOx3. Grossly intact
Psychiatric: Normal affect.
Course
<Toyin Rosario PA-C - Last Filed: 08/04/25 12:14>
Orders/Labs/Results
Orders:
Orders
08/03/25 Dinner
Regular
At Your Request: Full Participation
Does patient need a safe tray?: No
08/03/25 15:09
CT Chest PE Study Urgent
Comment:
Reason For Exam: elevated d-dimer, SOB
0.9% Sodium Chloride 500 ml [Nss] 500 ml IV BOLUS
08/03/25 16:41
Heparin 8,000 units IV NOW STA
08/03/25 16:[address] Non Medication Order As Directed
Physician Order: PTT 6 hours after initial start of Heparin infusion
Above order entered?: Yes
08/03/25 16:45
Heparin 28074 Units/250 ml 25,000 units in 250 ml IV PER PROTOCOL
Weight to be used for heparin protocol in kilograms (kg):: 100.2
Protocol:: DVT/PE
PTT Goal Range to be used:: PTT 73 to 111 seconds
Order type:: Initial
INITIAL Infusion Dose (UNITS/KG/hr) & then follow protocol:: 18 units/kg/hr
Infusion Dose in UNITS/hr & then follow protocol (UNITS/hr):: 1,800
INFUSION RATE in mL/hr & then follow protocol (mL/hr):: 18
For DVT/PE algorithm, re-bolus for low PTT?: Yes
PTT less than or equal to 64 seconds:: Re-bolus 80 units/kg (max 10,000units). Increase by 400 units/hr
(+ 4mL/hr)
PTT 64.1 to 72.9 seconds:: Re-bolus 40 units/kg (max 5,000 units). Increase by 200 units/hr
(+ 2mL/hr)
PTT 73 to 111 seconds:: Target Range. No change in rate.
PTT 111.1 to 130.9 seconds:: Decrease rate by 200 units/hr (- 2 mL/hr)
PTT 131 to 199.9 seconds:: HOLD for 1 hr. Then decrease by 300 units/hr (- 3mL/hr)
PTT greater than or equal to 200 seconds:: HOLD for 2 hrs & Notify Provider. Then decrease by 400 units/hr
(- 4mL/hr)
Lab follow-up:: Each change, PTT q6h until 2 consecutive are therapeutic. Then
PTT daily.
08/03/25 16:47
PTT Urgent
Comment: Obtain baseline before beginning heparin infusion if not already collected
08/03/25 16:52
Electrocardiogram (*1) Urgent
Reason for Study: Shortness of Breath
08/03/25 16:53
EKG- Treatment ONCE
08/03/25 16:57
Complete Blood Count/With Diff Urgent
Comprehensive Metabolic Panel Urgent
Troponin I Urgent
08/03/25 17:12
Heparin 4,000 units IV PRN PRN
Heparin 8,000 units IV PRN PRN
08/03/25 17:34
Acetaminophen [Tylenol] 650 mg PO Q4HPRN PRN mild pain
08/03/25 17:35
Admit/Transfer Patient As Directed
Co-Sign Provider:
Level of Care: Observation services
Assign to:: Telemetry
Physician / Group: Hospitalist
Diagnosis: Pulmonary embolism
Reason for Telemetry: Other
Other Reason for Telemetry: Right pulmonary embolism
Date to Stop Telemetry: 08/05/25
Time to Stop Telemetry: 11:00
Reason for Hospitalization: Pulmonary embolism in
PRN Pain Medication Management As Directed
May give lesser potent ordered pain med per pt: Yes
preference::
Protocol:: Medication orders for pain may be administered in a
manner that supports deferring to patient preference
when the pt is:
- Requesting an ordered lesser potent pain medication.
Least to most potent pain medications are defined
as: acetaminophen < NSAID < tramadol < opioids
(morphine, oxycodone, hydromorphone).
- Requesting a lesser dose of the same medication IF
ORDERED.
- Requesting a less intrusive route of administration
if both routes are prescribed by the provider (PO <
IV).
08/03/25 17:36
Code Status As Directed
Resuscitation Status: Full Code
08/03/25 17:51
PRN Pain Medication Management As Directed
May give lesser potent ordered pain med per pt: Yes
preference::
Protocol:: Medication orders for pain may be administered in a
manner that supports deferring to patient preference
when the pt is:
- Requesting an ordered lesser potent pain medication.
Least to most potent pain medications are defined
as: acetaminophen < NSAID < tramadol < opioids
(morphine, oxycodone, hydromorphone).
- Requesting a lesser dose of the same medication IF
ORDERED.
- Requesting a less intrusive route of administration
if both routes are prescribed by the provider (PO <
IV).
08/03/25 23:32
PTT Urgent
08/04/25 08:00
Multivitamin [Theragran] 1 tablet PO DAILY
Quetiapine Fumarate [Seroquel] 100 mg PO DAILY
aspirin 81 mg PO DAILY
08/05/25 11:00
DC Protocol for Telemetry ONCE
Abnormal Lab Results
08/03/25
16:57
RBC 3.46 L 10^6/uL
(4.20-5.40)
Hgb 10.7 L g/dL
(12.0-16.0)
Hct 32.8 L %
(37.0-47.0)
MCHC 32.6 L g/dL
(33.0-37.0)
Absolute Monos (auto) 0.7 H 10^3/uL
(0.1-0.6)
Monocytes % 9.6 H %
(1.7-9.3)
Sodium 131 L mmol/L
(135-145)
Chloride 109 H mmol/L
(98-107)
Creatinine 0.4 L mg/dL
(0.6-1.0)
Glucose 67 L mg/dl
(70-99)
Calcium 7.5 L mg/dl
(8.4-10.2)
ALT 37 H U/L
(0-35)
Total Protein 5.0 L g/dl
(6.3-8.2)
Albumin 2.5 L g/dl
(3.5-5.0)
08/03/25 16:57
08/03/25 16:57
Vital Signs
Initial and Last Documented VS:
Initial Vital Signs
Temp Pulse Resp BP Pulse Ox
98.6 F 81 16 119/73 100
08/03/25 13:52 08/03/25 13:52 08/03/25 13:52 08/03/25 13:52 08/03/25 13:52
Last Documented Vital Signs
Temp Pulse Resp BP Pulse Ox
98.6 F 72 16 88/49 97
08/04/25 11:20 08/04/25 11:20 08/04/25 11:20 08/04/25 11:20 08/04/25 11:20
<Pete Menendez, DO - Last Filed: 08/03/25 15:23>
Orders/Labs/Results
Orders:
Orders
08/03/25 Dinner
Regular
At Your Request: Full Participation
Does patient need a safe tray?: No
08/03/25 15:09
CT Chest PE Study Urgent
Comment:
Reason For Exam: elevated d-dimer, SOB
0.9% Sodium Chloride 500 ml [Nss] 500 ml IV BOLUS
08/03/25 16:41
Heparin 8,000 units IV NOW STA
08/03/25 16:[address] Non Medication Order As Directed
Physician Order: PTT 6 hours after initial start of Heparin infusion
Above order entered?: Yes
08/03/25 16:45
Heparin 38882 Units/250 ml 25,000 units in 250 ml IV PER PROTOCOL
Weight to be used for heparin protocol in kilograms (kg):: 100.2
Protocol:: DVT/PE
PTT Goal Range to be used:: PTT 73 to 111 seconds
Order type:: Initial
INITIAL Infusion Dose (UNITS/KG/hr) & then follow protocol:: 18 units/kg/hr
Infusion Dose in UNITS/hr & then follow protocol (UNITS/hr):: 1,800
INFUSION RATE in mL/hr & then follow protocol (mL/hr):: 18
For DVT/PE algorithm, re-bolus for low PTT?: Yes
PTT less than or equal to 64 seconds:: Re-bolus 80 units/kg (max 10,000units). Increase by 400 units/hr
(+ 4mL/hr)
PTT 64.1 to 72.9 seconds:: Re-bolus 40 units/kg (max 5,000 units). Increase by 200 units/hr
(+ 2mL/hr)
PTT 73 to 111 seconds:: Target Range. No change in rate.
PTT 111.1 to 130.9 seconds:: Decrease rate by 200 units/hr (- 2 mL/hr)
PTT 131 to 199.9 seconds:: HOLD for 1 hr. Then decrease by 300 units/hr (- 3mL/hr)
PTT greater than or equal to 200 seconds:: HOLD for 2 hrs & Notify Provider. Then decrease by 400 units/hr
(- 4mL/hr)
Lab follow-up:: Each change, PTT q6h until 2 consecutive are therapeutic. Then
PTT daily.
08/03/25 16:47
PTT Urgent
Comment: Obtain baseline before beginning heparin infusion if not already collected
08/03/25 16:52
Electrocardiogram (*1) Urgent
Reason for Study: Shortness of Breath
08/03/25 16:53
EKG- Treatment ONCE
08/03/25 16:57
Complete Blood Count/With Diff Urgent
Comprehensive Metabolic Panel Urgent
Troponin I Urgent
08/03/25 17:12
Heparin 4,000 units IV PRN PRN
Heparin 8,000 units IV PRN PRN
08/03/25 17:34
Acetaminophen [Tylenol] 650 mg PO Q4HPRN PRN mild pain
08/03/25 17:35
Admit/Transfer Patient As Directed
Co-Sign Provider:
Level of Care: Observation services
Assign to:: Telemetry
Physician / Group: Hospitalist
Diagnosis: Pulmonary embolism
Reason for Telemetry: Other
Other Reason for Telemetry: Right pulmonary embolism
Date to Stop Telemetry: 08/05/25
Time to Stop Telemetry: 11:00
Reason for Hospitalization: Pulmonary embolism in
PRN Pain Medication Management As Directed
May give lesser potent ordered pain med per pt: Yes
preference::
Protocol:: Medication orders for pain may be administered in a
manner that supports deferring to patient preference
when the pt is:
- Requesting an ordered lesser potent pain medication.
Least to most potent pain medications are defined
as: acetaminophen < NSAID < tramadol < opioids
(morphine, oxycodone, hydromorphone).
- Requesting a lesser dose of the same medication IF
ORDERED.
- Requesting a less intrusive route of administration
if both routes are prescribed by the provider (PO <
IV).
08/03/25 17:36
Code Status As Directed
Resuscitation Status: Full Code
08/03/25 17:51
PRN Pain Medication Management As Directed
May give lesser potent ordered pain med per pt: Yes
preference::
Protocol:: Medication orders for pain may be administered in a
manner that supports deferring to patient preference
when the pt is:
- Requesting an ordered lesser potent pain medication.
Least to most potent pain medications are defined
as: acetaminophen < NSAID < tramadol < opioids
(morphine, oxycodone, hydromorphone).
- Requesting a lesser dose of the same medication IF
ORDERED.
- Requesting a less intrusive route of administration
if both routes are prescribed by the provider (PO <
IV).
08/03/25 23:32
PTT Urgent
08/04/25 08:00
Multivitamin [Theragran] 1 tablet PO DAILY
Quetiapine Fumarate [Seroquel] 100 mg PO DAILY
aspirin 81 mg PO DAILY
08/05/25 11:00
DC Protocol for Telemetry ONCE
Abnormal Lab Results
08/03/25
16:57
RBC 3.46 L 10^6/uL
(4.20-5.40)
Hgb 10.7 L g/dL
(12.0-16.0)
Hct 32.8 L %
(37.0-47.0)
MCHC 32.6 L g/dL
(33.0-37.0)
Absolute Monos (auto) 0.7 H 10^3/uL
(0.1-0.6)
Monocytes % 9.6 H %
(1.7-9.3)
Sodium 131 L mmol/L
(135-145)
Chloride 109 H mmol/L
(98-107)
Creatinine 0.4 L mg/dL
(0.6-1.0)
Glucose 67 L mg/dl
(70-99)
Calcium 7.5 L mg/dl
(8.4-10.2)
ALT 37 H U/L
(0-35)
Total Protein 5.0 L g/dl
(6.3-8.2)
Albumin 2.5 L g/dl
(3.5-5.0)
08/03/25 16:57
08/03/25 16:57
Vital Signs
Initial and Last Documented VS:
Initial Vital Signs
Temp Pulse Resp BP Pulse Ox
98.6 F 81 16 119/73 100
08/03/25 13:52 08/03/25 13:52 08/03/25 13:52 08/03/25 13:52 08/03/25 13:52
Last Documented Vital Signs
Temp Pulse Resp BP Pulse Ox
98.6 F 72 16 88/49 97
08/04/25 11:20 08/04/25 11:20 08/04/25 11:20 08/04/25 11:20 08/04/25 11:20
<Toyin Rosario PA-C - Last Filed: 08/04/25 12:14>
MDM/Problems Addressed
Differential Diagnosis Includes:
Not limited to: pulmonary embolism, DVT, reactive airway disease, Normal , viral illness, acute dehydration, etc.
MDM/Problems Addressed:
40 year-old female , 30 weeks gestation presenting with progressively worsening exertional dyspnea over the past few weeks. No associated chest/back pain. No productive cough or infectious symptoms. No lower leg swelling.
Patient has stable vital signs. She is not hypoxic or tachycardic. On exam, she appears well and in no distress. Cardio/pulmonary assessment unremarkable. Her lungs are clear. No clinical evidence of DVT on exam.
Patient had significantly elevated d-dimer obtained yesterday.
Will obtain PE study to rule out pulmonary embolism given symptoms and elevated d-dimer.
Update 4:33PM: I received a text from radiology � PE study positive for pulmonary emboli in right upper and right middle low. Moderate burden without evidence of heart strain.
I discussed findings w/ patient. She remains well appearing and hemodynamically stable, in no distress.
Will admit patient for IV heparin / further management and monitoring. Likely transition to lovenox upon discharge.
Will send labs, troponin, check EKG.
Patient accepted to hospitalist service in stable condition. KEY HOLDER aware.
Chronic conditions affecting care:
N/A
Acute Exacerbation and/or Progression of Chronic Illness:
N/A
<Toyin Rosario PA-C - Last Filed: 08/04/25 12:14>
*Radiology
Radiology exam reviewed: radiology read reviewed
*Pulse Oximetry
SaO2: 100
Oxygen Mode of Delivery: Room air
Patient hypoxic: no
*EKG
Interpreted by ED Provider?: Yes
EKG Intrepretation Date: 08/04/25
Interpretation: normal
Comparison EKG: no changes
Heart Rate: 81
Rate: normal
Rhythm: sinus
[place]: normal axis
Interval: normal QT interval
QRS Pattern: normal QRS
Ischemia: no ischemia
*Music Therapist Interpretation
Rate: normal
Interpretation: normal
Heart Rate: 80
Rhythm: sinus
*Critical Care Note
Total Time (30-74mins, 75-104mins- exclusive of procedures): 35
comment:
Critical care statement: A total of 35 minutes of critical care time was provided for this patient. This includes management of unstable vital signs, evaluation of the patient at bedside, reviewing the patient's pertinent medical records, discussion
with consultants, review of old EKGs and review of pertinent medical records. This time with separate from time utilized to perform the aforementioned documented procedures
Data Reviewed
Review of Other/Old Records Reveals: Labs (D-dimer from 1117 25-9.3)
<Toyin Rosario PA-C - Last Filed: 08/04/25 12:14>
Patient Management
Discussion with other providers: Hospitalist and Fashion Patternmaker (Case discussed with OBGYN)
ED Attending Note
<Toyin Rosario PA-C - Last Filed: 08/04/25 12:14>
-
Portions of this chart may have been created with voice recognition software.� Occasional wrong word or��sound alike� substitutions may have occurred due to the inherent limitations of voice recognition software.
<Pete Menendez DO - Last Filed: 08/03/25 15:23>
ED Attending Note
Patient seen and examined by attending physician: Yes
I performed the substantive portion of visit, reviewed & personally made and approve the management plan that is documented in note by myself or KASSANDRA.: Yes
ED Attending Note:
I have seen and evaluated the patient with a [id number] encounter. I have spoken to the advance practicer provider and involved in the medical history, the physical exam, medical decision making.
Evaluation and management service: agree unless noted differently below.
Results interpretation: agree unless noted differently below.
Focused HPI: 40-year-old female who is currently 30 weeks presents back to the emergency department for CT scan. Patient was seen yesterday and had blood work and was found to have an elevated D-dimer
Physical exam: Sitting bed comfortably. Lungs Clear
Medical Decision Making: Patient understands the radiation risk to the fetus and gave consent to obtain CT PE
Discharge Plan
Departure
Patient Disposition: Admit
Date of Disposition: 08/03/25
Time of Disposition: 16:53
Presentation/result/management discussed w/ accepting MD/DO: Hospitalist
Discharge Problem:
Pulmonary embolism complicating in third trimester
Interventions
Interventions:
*Risk Screen - Suicide Last Done: 08/03/25 13:52
*General Assessment Last Done: 08/03/25 16:00
*Neglect/Abuse Screening Last Done: 08/03/25 13:52
*ED COVID-19 Vaccine History Last Done: 08/03/25 16:00
*ED Influenza Vaccine History Last Done: 08/03/25 16:00
*Nursing Disposition Last Done: 08/03/25 18:54
ED- Cardiac Assessment Last Done: 08/03/25 16:00
ED- Pulmonary Assessment Last Done: 08/03/25 16:00
Discharge Date and Time
Discharge Date/Time: 08/03/25 19:09
[2025-08-03 17:06] LABS: Hematocrit 32.8 % (37.0-47.0); Hemoglobin 10.7 g/dL (12.0-16.0); Mean Corp Hgb Conc. 32.6 g/dL (33.0-37.0); Mean Corpuscular Volume 94.8 fL (81.0-99.0); Nucleated Red Blood Cells % 0 %; Platelet Count 238 10^3/uL (130-400); Red Cell Dist. Width 13.0 % (11.5-14.5)
[2025-08-03 17:08] LABS: APTT 25.1 Sec (23.4-35.0)
[2025-08-03] MEDS: HEPARIN 8000 UNITS IV (17:22)
[2025-08-03] MEDS: HEPARIN 25000 UNITS/250 ML IV (17:24)
[2025-08-03 17:26] LABS: ALT (SGPT) 37 U/L (0-35); AST (SGOT) 33 U/L (14-36); Albumin 2.5 g/dl (3.5-5.0); Alkaline Phosphatase 57 U/L (38-126); Blood Urea Nitrogen 8 mg/dl (7-17); Calcium 7.5 mg/dl (8.4-10.2); Carbon Dioxide 22 mmol/L (22-30); Chloride 109 mmol/L (98-107); Estimated Creatinine Clearance > 125 ml/min; Glucose 67 mg/dl (70-99); Potassium 4.0 mmol/L (3.5-5.1); Sodium 131 mmol/L (135-145); Total Protein 5.0 g/dl (6.3-8.2); eGFR > 60.00
[2025-08-03 17:37] LABS: Troponin I 0.025 ng/ml
--- NOTE | 2025-08-03 17:37 | HPS.HSE ---
Addendum entered and electronically signed by Collins Bird MD 08/03/25 20:03:
This is an addendum to the H&P written by Christi Macedo on 08/03/2025. �Patient seen and examined independently with resident.
40-year-old female 30 weeks , G2, P1, anxiety, anemia secondary to gastric bypass, presenting with shortness of breath over the past 1 worsening over 1 to 2 weeks. �Had lightheadedness and near syncope yesterday. �No chest pain. � She came
to emergency room yesterday and was discharged however D-dimer was elevated so told to return for imaging. �No history of blood clots. �No family history of blood clots.
Vital signs unremarkable.
CT PE shows right upper lobe and right lower lobe pulmonary emboli. �Moderate clot present. �No evidence of right heart strain.
Patient with pulmonary embolism, only provoking factors . �Heparin drip started. �Check venous ultrasound to evaluate for DVT. �Check echocardiogram. �Will likely need to switch to lovenox on discharge. HEALTH PRACTICE MANAGER consulted as patient is
. �On aspirin for preeclampsia prophylaxis, can hold for now.
Addendum entered and electronically signed by Collins Bird MD 08/03/25 20:02:
This is an addendum to the H&P written by Christi Macedo on 08/03/2025. �Patient seen and examined independently with resident.
40-year-old female 30 weeks , G2, P1, anxiety, presenting with shortness of breath over the past 1 worsening over 1 to 2 weeks. �No chest pain. �Cramping in right calf. �She came to emergency room yesterday and was discharged however D-dimer
was elevated so told to return for imaging. �No history of blood clots.
Vital signs unremarkable.
CT PE shows right upper lobe and right lower lobe pulmonary emboli. �Moderate clot present. �No evidence of right heart strain.
Patient with pulmonary embolism. �Heparin drip started. �Check venous ultrasound to evaluate for DVT. �Check echocardiogram. �Pulmonary consulted. �HEALTH PRACTICE MANAGER consulted as patient is .
Original Note:
Family Physician
-
Family Physician: Marixa Parker
Chief Complaint
-
Dyspnea in
History of Present Illness
40-year-old female 30 weeks of gestation, G2, P1 presents with shortness of breath. Patient notes that she has been more frequent difficulty of breathing for the past 2 weeks. She was seen in the ED yesterday for being severely short of breath and
nauseous. She was discharged in the same day however they reached out to her this morning stating that her D-dimer was elevated and to return to the ED for further evaluation. Patient has a history of gastric bypass 10 years ago. She has a history
of anemia due to gastric bypass. She denies recent travels, immobilization, lower extremity pain/calf pain, previous history of DVT/PE or family history of clots. She denies chest pain, palpitations, fever/chills.
Medical History
Past Medical History
Past Medical History: Reports Psychiatric (Mood disorder/depression)
Past Surgical History: Reports Other (Gastric bypass)
Social History
Tobacco: Non-smoker
Alcohol: None
Drug: None
Personal:
Living: With Family
Family History
Family History: Not pertinent
Allergies / Home Medications
Allergies reflects when Allergies were last updated in [employer]
Home Medications with original date entered in [employer]
Allergy/Medication List:
Allergies
Allergy/AdvReac Type Severity Reaction Status Date / Time
Fish Containing Products Allergy Hives Verified 08/03/25 17:10
Home Medications
acetaminophen 325 mg tablet 650 mg (2 x 325 mg) PO Q4HPRN PRN mild pain #0 tabs 09/08/23
lsflqdblimjk-Ni-hpvw-minerals 1 pkg PO DAILY 05/01/24
quetiapine 100 mg tablet (Seroquel) 100 mg PO DAILY 05/01/24
aspirin 81 mg tablet 81 mg PO DAILY 08/03/25
Review of Systems
-
A 12 point ROS was completed and negative except as noted: Yes
Physical Exam
Vital Signs
Vital Signs
Temp Pulse Resp BP Pulse Ox
98.6 F 81 16 119/73 100
08/03/25 13:52 08/03/25 13:52 08/03/25 13:52 08/03/25 13:52 08/03/25 15:20
Physical Exam
General: No Apparent Distress, Comfortable and Conversant
HEENT: NormoCephalic, Anicteric and Moist mucous membranes
Respiratory: Clear
Cardiac: S1/S2 and Regular Rhythm
GI: Soft, Non Tender, Non Distended and Normal Bowel Sounds
Musculoskeletal: No Clubbing and No Cyanosis
Skin: Warm
Neuro: AO x 3
Hematologic/Lymphatic: No Lymphadenopathy
Psych: Calm
Laboratory Results
-
08/03/25 16:57
08/03/25 16:57
Laboratory Results
APTT 25.1 Sec (23.4-35.0) 08/03/25 16:47
Total Bilirubin 0.4 mg/dl (0.2-1.3) 08/03/25 16:57
AST 33 U/L (14-36) 08/03/25 16:57
ALT 37 U/L (0-35) H 08/03/25 16:57
Alkaline Phosphatase 57 U/L (38-126) 08/03/25 16:57
Troponin I 0.025 ng/ml 08/03/25 16:57
Data Reviewed
-
CT Scan: Report Reviewed by me and Discussed with Physician
Medical Tests (Nuc Med, Echo, EKG etc): Report Reviewed by me and Discussed with Physician
Impression/Plan
-
IMPRESSION:
Right upper and lower lobe pulmonary embolism in
History of gastric bypass
History of mood disorder
PLAN:
#Right upper and lower lobe pulmonary embolism in
Likely unprovoked
Stable PE, VSS
Start heparin drip
Hold aspirin
Check venous ultrasound bilateral lower extremity
Check echocardiogram
Monitor PTT
Consult HEALTH PRACTICE MANAGER
#History of mood disorder
Continue Seroquel
#History of gastric bypass
Hold aspirin (risk of gastric ulcer)
CODE STATUS full code
Diet regular
DVT prophylaxis heparin
--- NOTE | 2025-08-03 19:30 | PTCARENOTE ---
Recieved Pt. from ED. Pt. oriented to unit and call beard within reach. Pt. care ongoing.
--- NOTE | 2025-08-03 21:53 | PTCARENOTE ---
2100- NST completed per MD order. FH's 115 with accelerations present - no decels. Pt comfortable - no c/o at this time.
[2025-08-04 00:03] LABS: APTT 98.4 Sec (23.4-35.0)
[2025-08-04 03:16] VITALS: BP 109/69
--- NOTE | 2025-08-04 04:20 | DOWNTIME ---
There was a [employer] Client Concrete Laborer Downtime on 08/04/2025 from 0100 to 08/04/2025 at 0255. Downtime documentation of patient's care, including medication administrations, has been reconciled in the electronic record per guidelines. Refer to the
patient's paper chart under the miscellaneous tab to see printed paper medication records and downtime forms.
[2025-08-04 05:55] LABS: APTT 88.8 Sec (23.4-35.0)
--- NOTE | 2025-08-04 07:02 | W.PN.HOSP.TC ---
Addendum entered and electronically signed by Domi Deshpande MD 08/04/25 17:14:
I saw and evaluated the patient independently. I reviewed and dicussed the resident�s note and agree with findings and plan as documented by Dr. Luna.
GENERAL: well developed, well nourished, female in no apparent distress
HEENT: NC/AT--no O2 requirements, on room air
HEART: regular rate and rhythm, +S1, +S2
LUNGS : clear to auscultation bilaterally
ABDOM: soft, nontender, nondistended, + bowel sounds--
EXT: no cyanosis, clubbing, or edema
NEUROLOGIC: grossly intact
Shortness of breath secondary to acute pulmonary embolism--elevated D-Dimer with positive CT scan--started on heparin drip--on room air--cannot use DOACs or Warfarin in --lovenox priced at ~$105 for 30 day supply--await heme input--US neg
for DVT
30 week --high risk due to advanced maternal age along with chronic iron deficiency and now acute pulm embolism requiring anticoagulation--NST of the baby is WNL--MFM to see patient tomorrow--apprec OB--cont vitamins
Chronic iron deficiency anemia secondary to gastric bypass--trying to get outpt IV iron infusions set through [employer] and her insurance--follow HGB--Iron studies: Iron 58, TIBC 531 high, percentage of saturation 10 low, ferritin 8.7.
DVT proph--Heparin drip
code status--FULL CODE
Original Note:
Today's Communication/Plan
-
Follow-up with store administrator, OBG
NST every shift
Monitor H&H
CBC, CMP
Assessment / Plan
Assessment / Plan
40-year-old female with 30 weeks of gestation G2, P1 with past history of anxiety, secondary to gastric bypass anemia, mood disorder presented to ER with shortness of breath:
# Shortness of breath secondary to pulmonary embolism:
D-dimer 9.30 high, troponin 0.026--0.025 normal, APTT 25.1--98.4---88.8 high
Currently she is on heparin 8000 units and 250 ml.
Monitor APTT,h&h
Hold on baby aspirin due to bleeding risk.
Nonstress test normal
Currently she is tolerating food,
I/O--1440/2
Actual weight 100.2kg
Serology completed on June, while on second gestation which was negative for all STDs.
Peripheral vascular study: No sonographic evidence for lower extremity venous thrombosis.
08/02: chest x-ray : no acute disease of the chest
EKG: Normal sinus rhythm, normal EKG when compared with 02 August 2025 EKG.
On 08/[address]:Right upper lobe and right lower lobe pulmonary emboli. Moderate clot present. No evidence of right heart strain.
If the patient has emphysema, patient should be assessed for an annual low dose lung cancer CT program, as pulmonary emphysema is an independent risk factor for lung cancer.
Critical value: Pulmonary embolus.
Nonstress test to monitor.
# 32 weeks gestation:
Complicated elderly
OBG consulted: Patient follows with [facility] for OB/[facility] care.
NST this morning reactive and reassuring
Had a status is the high risk for hypercoagulable state.
- NST qshift. NST this morning reactive and reassuring
- MFM to see patient tomorrow- Dr. Urias aware.
Continue vitamins.
# Chronic iron deficiency anemia secondary to gastric bypass:
Iron studies: Iron 58, TIBC 531 high, percentage of saturation 10 low, ferritin 8.7.
Hemoglobin 12.9--10.7 dropped
Bevel Mill Operator consulted for the risk of bleeding.
H&H monitor
Consider transfusion if your hemoglobin is lesser than 8
DVT prophylaxis: Heparin
Disposition: Home
Diet: Normal
Anticipated Discharge: > 48 hours
Subjective/Interval History
-
Date of Service: August 04, 2025
40-year-old female with 30 weeks of gestation, G2, P1, with past history of anxiety, anemia secondary to gastric bypass, mood disorder presented to ER with shortness of breath over the past 1 week. Shortness of breath started past 1 week and it
started to worsen until Saturday where she mentioned' I cannot catch my breathe, I feel like my heart rate was rising, and felt to pass out at Saturday morning' when she was trying to get her shoes. She immediately called her grooving machine operator and she did
recommended to reach to ER on Saturday. She was discharged however her D-dimer was elevated so was called by ER to return for imaging and further workup. There is no history of blood clots, hematuria, hematochezia. Her last bowel movement was
yesterday morning. There was no family history, she did not recently travel on the flight. No family history for clotting disorders, she is a non-smoker, did not use any medications or recreational drug. Recently she was switched from Zoloft to
baby aspirin after her 8 months ago. Currently she is on acetaminophen 325 mg, multivitamins, quetiapine 100 mg, aspirin 81 mg.
Objective Data
-
Labs:
Laboratory Results
08/03/25 08/04/25
23:32 05:28
APTT 98.4 H 88.8 H
Vital Signs:
Vital Signs
Temp Pulse Resp BP Pulse Ox
98.2 F 71 16 109/69 97
08/04/25 03:16 08/04/25 03:16 08/04/25 03:16 08/04/25 03:16 08/04/25 03:16
I&O
08/03/25 08/04/25 08/05/25
06:59 06:59 06:59
Intake Total 1440 / 1440
Balance 1440 / 1440
Review of Systems
-
History Source: Patient
All other systems: Reviewed and negative
Physical Exam
-
General: Well Developed, Well Nourished and No Apparent Distress
Respiratory: Clear to Auscultation
Cardiac: Regular Rhythm and S1/S2
GI: Soft, Nontender and Distended (30 weeks gestation)
Genito-urinary: No Costovertebral Tender
Musculoskeletal: No Clubbing and No Cyanosis
Skin: Warm
Neuro: AO x 3
Hematologic / Lymphatic: No Lymphadenopathy
Psych: Calm
[2025-08-04 07:22] VITALS: BP 88/52
[2025-08-04] MEDS: SEROQUEL 100 MG PO (07:28)
[2025-08-04] MEDS: THERAGRAN 1 TABLET PO (07:29)
[2025-08-04] MEDS: HEPARIN 25000 UNITS/250 ML IV ×2 (07:35→20:10)
--- NOTE | 2025-08-04 09:30 | PTCARENOTE ---
Patient Eli Schreiber at 30 weeks gestation admitted with SOB found to have a PE. Patient is on Heparin IV. monitors placed for NST. FHR 125, with moderate varibility. positive accelerations and no decelerations noted. Patient with no
contractions noted on tracing. Patient denies any contractions, LOF or bleeding. + movement felt by patient.
[2025-08-04 11:20] VITALS: BP 88/49
--- NOTE | 2025-08-04 12:25 | CM ---
Addendum entered by Tyesha Liu 08/04/25 12:38:
CM checked cost of Lovenox 100 mg 2x daily:
Per [facility] Pharmacist- 30 day supply with insurance coverage: $104.64
Original Note:
CM reviewed chart, patient seen bedside, initial assessment completed.
Patient is a 40-year-old female 30 weeks of gestation, G2, P1 presents with shortness of breath.
Patient resides with her and almost two year old daughter in a multiple story home.
Patient is independent with ADLS/IADLs, denies DME, VN, SNF hx.
Patient is employed at [employer].
OBGYN: Marixa Parker, Pharmacy: [facility].
Patient denies insecurities at home.
OBS form verbally reviewed with patient, provided with copy, placed in chart.
CM will continue to follow for all discharge planning needs.
Plan; home with family when stable.
--- NOTE | 2025-08-04 12:41 | CON.MD ---
Consultation - Medical
-
Consult:
HPI: Patient is a 40yo @30.5 weeks who presented to the ED with progressive shortness of breath over the last 2 weeks. She states that she thought it was shortness of breath related to but then she had a near syncopal event and was
vomiting so she went to the ED for evaluation. She was found to have a PE of the right upper and right lower lobes. She is on a heparin drip. She has no related concerns. She denies vaginal bleeding or leakage of fluid or contractions. +FM.
complications
- Iron deficiency anemia- follows w/ Hematology
- Hx C/Sx1 for breech presentation, desires repeat
- BMI 33
- Advanced maternal age
- Hx duodenal switch
PMHx: iron deficiency anemia, obesity, anxiety/depression
Meds: PNV, Seroquel 100mg qD, bASA
Surghx: C/Sx1, duodenal switch, wrist surgery
All: oxycodone, shellfish
Socialhx: denies tobacco, etoh, or illicit drug use
Famhx: MGM w/ ovarian cancer
OBHx: 08/2023 PLTCS, breech presentation
O
BP 88/49
General: well appearing
Cardio: regular
Abd: gravid
NST:
FHT: 120 baseline/moderate variability/+accelerations/no decelerations
[place]: no ctx
A/P: 40yo @30.5 weeks with pulmonary embolism
- Management of PE per primary team. Currently on heparin drip. Hematology to see patient
- NST qshift. NST this morning reactive and reassuring
- MFM to see patient tomorrow- Dr. Urias aware
[2025-08-04 15:05] VITALS: BP 102/78
[2025-08-04 19:17] VITALS: BP 108/62
[2025-08-04 23:00] VITALS: BP 96/50
--- NOTE | 2025-08-05 00:32 | PTCARENOTE ---
2350 - NST completed. FH/s 115 - moderate variability, accelerations present, no decelerations. No contractions noted. PT has no c/o and is comfortable at this time. Heparin drip continues.
[2025-08-05 03:02] VITALS: BP 99/61
[2025-08-05 07:00] VITALS: BP 98/48
--- NOTE | 2025-08-05 07:03 | W.PN.HOSP.TC ---
Addendum entered and electronically signed by Domi Deshpande MD 08/05/25 18:10:
I saw and evaluated the patient independently. I reviewed and dicussed the resident�s note and agree with findings and plan as documented by Dr. Luna.
GENERAL: well developed, well nourished, female in no apparent distress
HEENT: NC/AT--no O2 requirements, on room air
HEART: regular rate and rhythm, +S1, +S2
LUNGS : clear to auscultation bilaterally
ABDOM: soft, nontender, nondistended, + bowel sounds--
EXT: no cyanosis, clubbing, or edema
NEUROLOGIC: grossly intact
Shortness of breath secondary to acute pulmonary embolism--elevated D-Dimer with positive CT scan--started on heparin drip with conversion to lovenox 100mg SC BID--on room air--cannot use DOACs or Warfarin in --lovenox priced at ~$105 for
30 day supply--apprec heme input--US neg for DVT
30 week --high risk due to advanced maternal age along with chronic iron deficiency and now acute pulm embolism requiring anticoagulation--NST of the baby is WNL--apprec MFM --apprec OB--cont vitamins
Chronic iron deficiency anemia secondary to gastric bypass--trying to get outpt IV iron infusions set through heme and her insurance--follow HGB--Iron studies: Iron 58, TIBC 531 high, percentage of saturation 10 low, ferritin 8.7.
DVT proph--Heparin drip
code status--FULL CODE
Original Note:
Today's Communication/Plan
-
Monitor weight.
CBC, CMP
Prescribe antiemetics Diclegis 10 mg which is not available formulary, alternative prescribed.
follow up with process plant operator for her lovenox medication.
start iv fluids.
her Lovenox cost will be around 105 dollars for 30 days.
Assessment / Plan
Assessment / Plan
40-year-old female with 30 weeks of gestation G2, P1 with past history of anxiety, secondary to gastric bypass anemia, mood disorder presented to ER with shortness of breath:
# Shortness of breath secondary to pulmonary embolism:
Vitals: BP 108/62--96/50--99/61, started her on IV NS 100 mL/h fluids.
Lab: Hemoglobin 10.7--11 low
Chemistry: Sodium 131, bun 5 low, creatinine 0.3 low.
Coagulation: APTT 88.8--80.7.
D-dimer 9.30 high, troponin 0.026--0.025 normal,
Currently she is on heparin 8000 units and 250 ml.
Monitor APTT,h&h
Hold on baby aspirin due to bleeding risk.
Nonstress test reactive and reassuring yesterday night.
Currently she is tolerating food,
I/O--1440/2
Actual weight 100.2kg
Serology completed on June, while on second gestation which was negative for all STDs.
Peripheral vascular study: No sonographic evidence for lower extremity venous thrombosis.
08/02: chest x-ray : no acute disease of the chest
EKG: Normal sinus rhythm, normal EKG when compared with 02 August 2025 EKG.
On 08/[address]:Right upper lobe and right lower lobe pulmonary emboli. Moderate clot present. No evidence of right heart strain.
If the patient has emphysema, patient should be assessed for an annual low dose lung cancer CT program, as pulmonary emphysema is an independent risk factor for lung cancer.
Critical value: Pulmonary embolus.
Nonstress test to monitor.
# 32 weeks gestation:
Complicated elderly
She is nauseous today and tolerating less food.
Prescribed Tums 2 tabs max per day along with pyridoxine 50 mg tablet every day for her nausea.
OBG consulted: Patient follows with [facility] for OB/[facility] care.
NST yesterday night reactive and reassuring
Had a status is the high risk for hypercoagulable state.
- NST qshift. NST this morning reactive and reassuring
- MFM to see patient tomorrow- Dr. Urias aware.
Continue vitamins.
# Chronic iron deficiency anemia secondary to gastric bypass:
Iron studies: Iron 58, TIBC 531 high, percentage of saturation 10 low, ferritin 8.7.
Hemoglobin 12.9--10.7--11 improved, probably due to dehydration/low BP.
Cooking Show Host consulted for the risk of bleeding and future management to switch her to Lovenox while on discharge.
H&H monitor
Consider transfusion if hemoglobin is lesser than 8
DVT prophylaxis: Heparin
Disposition: Home
Diet: Normal
Anticipated Discharge: 24 - 48 hours
Subjective/Interval History
-
Date of Service: August 05, 2025
Overnight she has nausea, she is tolerating food. She requested to restart her hyperemesis gravidarum antiemetic medication which she used to take at home every night. Probably she might be taking Diclegis(doxylamine and pyridoxine).
OBG yesterday has done nonstress test which showed reactive, reassuring.
MFM to see patient today-Dr. Urias aware.
Objective Data
-
Labs:
Laboratory Results
08/05/25
06:00
WBC Pending
Hgb Pending
Hct Pending
Plt Count Pending
APTT Pending
Sodium Pending
Potassium Pending
Chloride Pending
Carbon Dioxide Pending
BUN Pending
Creatinine Pending
Glucose Pending
Calcium Pending
Total Bilirubin Pending
AST Pending
ALT Pending
Alkaline Phosphatase Pending
Vital Signs:
Vital Signs
Temp Pulse Resp BP Pulse Ox
98.2 F 83 16 99/61 98
08/05/25 03:02 08/05/25 03:02 08/05/25 03:02 08/05/25 03:02 08/05/25 03:02
I&O
08/04/25 08/05/25 08/06/25
06:59 06:59 06:59
Intake Total 1440 / 1440 3536 / 3536
Balance 1440 / 1440 3536 / 3536
Review of Systems
-
History Source: Patient
All other systems: Reviewed and negative
Physical Exam
-
General: Well Nourished and No Apparent Distress
Respiratory: Clear to Auscultation
Cardiac: Regular Rhythm and S1/S2
GI: Soft, Nontender and Distended (Third trimester , no bruises)
Genito-urinary: No Costovertebral Tender
Musculoskeletal: No Clubbing and No Cyanosis
Neuro: AO x 3
Psych: Calm
[2025-08-05 08:00] LABS: APTT 80.7 Sec (23.4-35.0)
[2025-08-05 08:03] LABS: Hematocrit 33.1 % (37.0-47.0); Hemoglobin 11.0 g/dL (12.0-16.0); Mean Corp Hgb Conc. 33.2 g/dL (33.0-37.0); Mean Corpuscular Volume 92.7 fL (81.0-99.0); Platelet Count 234 10^3/uL (130-400); Red Cell Dist. Width 13.0 % (11.5-14.5)
[2025-08-05 08:06] LABS: ALT (SGPT) 30 U/L (0-35); AST (SGOT) 28 U/L (14-36); Albumin 2.6 g/dl (3.5-5.0); Alkaline Phosphatase 56 U/L (38-126); Blood Urea Nitrogen 5 mg/dl (7-17); Calcium 8.1 mg/dl (8.4-10.2); Carbon Dioxide 21 mmol/L (22-30); Chloride 110 mmol/L (98-107); Estimated Creatinine Clearance > 125 ml/min; Glucose 70 mg/dl (70-99); Potassium 3.7 mmol/L (3.5-5.1); Sodium 131 mmol/L (135-145); Total Protein 5.2 g/dl (6.3-8.2); eGFR > 60.00
[2025-08-05] MEDS: SEROQUEL 100 MG PO (09:18)
[2025-08-05] MEDS: THERAGRAN 1 TABLET PO (09:19)
[2025-08-05] MEDS: HEPARIN 25000 UNITS/250 ML IV (10:52)
[2025-08-05 11:16] VITALS: BP 122/80
--- NOTE | 2025-08-05 12:28 | CON.ONC ---
Consultation
-
Date Consultation Requested: 08/05/25
Date Consultation Performed: 08/05/25
Impression
Impression
Pulmonary embolus associated with
Gestational anemia
Plan
Plan
Lovenox weight-based 100 mg twice daily
Prefer twice daily dosing to once a day dosing given lower peak value and the known higher creatinine clearance with
Patient has previously injected herself following her bariatric surgery but quite remotely
Follow-up in the office to review thrombophilia assessment postdelivery
Patient History
History of Present Illness
HPI: Patient is a 40yo at 30 weeks gestation presented to the emergency room with increasing shortness of breath over 2 weeks. D-dimer was performed and noted to be elevated. A CT scan of the chest was performed which shows right upper and
lower lobe pulmonary emboli with moderate burden. She states that she thought it was shortness of breath related to . She is on a heparin drip tolerating without atypical bleeding. She has followed in our office for parenteral iron
resuscitation with a history of bariatric surgery.
Past-Medical/Surgical History
Past medical history
Iron deficiency anemia
Advanced maternal age
Past surgical history
bariatric surgery duodenal switch
Family and Social
noncontributory
Patient Medication
�Medication �Instructions �Recorded �Confirmed �Last Taken �Type
acetaminophen 325 mg tablet 650 mg (2 x 325 mg) PO Q4HPRN PRN 09/08/23 08/03/25 Unknown Rx
mild pain #0 tabs
twjuwgkbvfzq-Bk-xtes-minerals 1 pkg PO DAILY Supplement 05/01/24 08/03/25 08/03/25 History
quetiapine 100 mg tablet (Seroquel) 100 mg PO DAILY Mental 05/01/24 08/03/25 08/03/25 History
Health/Anxiety
aspirin 81 mg tablet 81 mg PO DAILY Blood Clot 08/03/25 08/03/25 08/03/25 History
Prevention/Tx
Active Medications
Generic Name Dose Route Start Last Admin
Trade Name Freq PRN Reason Stop Dose Admin
Acetaminophen 650 mg 08/03/25 17:34
Acetaminophen 325 Mg Tablet PO 08/31/25 17:33
Q4HPRN PRN
mild pain
Heparin Sodium 8,000 units 08/03/25 19:59
Heparin 80 Units/Kg Iv Rebolus IV 08/31/25 19:58
PRN PRN
PTT < OR = 64 seconds
Heparin Sodium 4,000 units 08/03/25 19:59
Heparin 40 Units/Kg Iv Rebolus IV 08/31/25 19:58
PRN PRN
PTT = 64.1 to 72.9 seconds
Heparin Sodium 25,000 units in 250 mls @ 0 mls/hr 08/03/25 16:45 08/05/25 10:52
Heparin 71016 Units/250 Ml IV 250 mls
PER PROTOCOL CJ Administration
Protocol
Per Protocol
Sodium Chloride 1,000 mls @ 100 mls/hr 08/05/25 10:45
Nss IV
.Q10H CJ
Multivitamins Therapeutic 1 tablet 08/04/25 08:00 08/05/25 09:19
Multivitamin Tablet PO 09/01/25 07:59 1 tablet
DAILY CJ Administration
Pyridoxine HCl 50 mg 08/05/25 12:00
Pyridoxine 50 Mg Tablet PO 09/02/25 11:59
DAILY CJ
Quetiapine Fumarate 100 mg 08/04/25 08:00 08/05/25 09:18
Quetiapine 100 Mg Tablet PO 09/01/25 07:59 100 mg
DAILY CJ Administration
Review of Systems
-
12 point review systems fails elicit additional complaints other than those reviewed in HPI
Physical Exam
-
General: Well Developed and Well Nourished
HEENT: Negative Jaundice
Cardiology: Normal Sinus Rhythm
Pulmonary: Clear
GI: Soft and Other (Appropriate for gestational age)
Genito-Urinary: No Bladder Pain to Palpation
Musculoskeletal: No Edema
Extremities: Negative Phlebitic Signs
Neurology: Non Focal
Skin: Warm and Dry
Hematologic / Lymphatic: No Lymphadenopathy
Psych: Calm
Labs
Lab Results
WBC 6.1 10^3/uL (4.8-10.8) 08/05/25 07:22
RBC 3.57 10^6/uL (4.20-5.40) L 08/05/25 07:22
Hgb 11.0 g/dL (12.0-16.0) L 08/05/25 07:22
Hct 33.1 % (37.0-47.0) L 08/05/25 07:22
MCV 92.7 fL (81.0-99.0) 08/05/25 07:22
MCH 30.8 pg (27.0-31.0) 08/05/25 07:22
MCHC 33.2 g/dL (33.0-37.0) 08/05/25 07:22
RDW 13.0 % (11.5-14.5) 08/05/25 07:22
Plt Count 234 10^3/uL (130-400) 08/05/25 07:22
MPV 9.6 fL (7.4-10.4) 08/05/25 07:22
Abs Immat Gran (auto) 0.0 10^3/uL (0-0.05) 08/03/25 16:57
Absolute Neuts (auto) 3.8 10^3/uL (1.4-6.5) 08/03/25 16:57
Absolute Lymphs (auto) 2.2 10^3/uL (1.2-3.4) 08/03/25 16:57
Absolute Monos (auto) 0.7 10^3/uL (0.1-0.6) H 08/03/25 16:57
Absolute Eos (auto) 0.1 10^3/uL (0-0.7) 08/03/25 16:57
Absolute Basos (auto) 0.0 10^3/uL (0-0.2) 08/03/25 16:57
Immature Gran % 0.3 % (0-0.5) 08/03/25 16:57
Neutrophils % 56.2 % (42.2-75.2) 08/03/25 16:57
Lymphocytes % 32.8 % (20.5-51.1) 08/03/25 16:57
Monocytes % 9.6 % (1.7-9.3) H 08/03/25 16:57
Eosinophils % 1.0 % (0-6) 08/03/25 16:57
Basophils % 0.1 % (0-2) 08/03/25 16:57
Creatinine 0.3 mg/dL (0.6-1.0) L 08/05/25 07:22
Vital Signs
Vital Signs
Temp Pulse Resp BP Pulse Ox
98 F 78 17 122/80 98
08/05/25 11:16 08/05/25 11:16 08/05/25 11:16 08/05/25 11:16 08/05/25 11:16
[2025-08-05] MEDS: TUMS CHEWABLE TABLET 200 MG PO (12:31)
[2025-08-05] MEDS: VITAMIN B-6 50 MG PO (12:31)
[2025-08-05] MEDS: NSS 1000 IV (12:33)
--- NOTE | 2025-08-05 13:13 | W.PN.OBG.DWH ---
Today's Communication / Plan
-
Continue with NST q shift
Await MFM consult for any further instructions
Continue with anticoagulation
Assessment/Plan
-
IUP at 30.6 wks with PE-stable per OB, MFM consult today. Continue with NST's q shift
Subjective Data
-
No complaints, denies vaginal bleeding, leak of fluid, contractions. Notes good movement
Objective Data
-
Laboratory Results
08/05/25 07:22
08/05/25 07:22
Vital Signs
Temp Pulse Resp BP Pulse Ox
98 F 78 17 122/80 98
08/05/25 11:16 08/05/25 11:16 08/05/25 11:16 08/05/25 11:16 08/05/25 11:16
NST-reactive
Abdomen-gravid, nontender at appropriate fundal height
Extremities-no calf pain
--- NOTE | 2025-08-05 13:39 | PTCARENOTE ---
NST completed. FHT/s 120's - moderate variability, accelerations present, no decelerations. No contractions noted, FHT strip given to charge nurse in [facility], Dr Cooley and patients nurse notified NST completed, Dr Dixon [facility] st bedside during NST
--- NOTE | 2025-08-05 14:26 | CM ---
Patient seen at bedside with physician on . Patient for transportation home. Patient home with no needs at this time. CM will continue to follow for discharge planning needs.
Plan home with no needs.
[2025-08-05 15:00] VITALS: BP 95/56
--- NOTE | 2025-08-05 16:09 | W.DCSUMMARY ---
Addendum entered and electronically signed by Domi Deshpande MD 08/05/25 18:12:
Read, reviewed, and agree. See same day progress note for additional details. Time spent coordinating care, DC planning, review of DC plan of care with resident, transition of care, review of records in EMR, med rec, consults, notes, d/w
consultants, nursing, family, and CM = 45 minutes
Original Note:
Discharge Summary
Discharge Data
Date of Admission: 08/03/25
Date of Discharge: 08/05/25
Total time spent discharging patient (in min): 45 minutes
-
Pending Results: No
Hospital Course
Discharging Physician :Dr Deshpande,Domi Dunlap MD
Mayte Hyman MD
Disposition : Home
Primary care physician : Not known
Principal Discharge diagnosis : Pulmonary embolism secondary to hypercoagulable state of
Chronic Discharge diagnosis :
# Iron deficiency anemia secondary to gastric bypass-continued iron medications and followed H&H at the time of admission to discharge.
Hospital Course : On 07/1830 10-year-old female with 30 weeks gestation, G2, P2 with past history of anxiety, anemia secondary to gastric bypass, mood disorder presented to ER with shortness of breath over the past 1 week. Shortness of breath
started past 1 week and it started to worsen until Saturday where she mentioned' I cannot catch my breathe, I feel like my heart rate was rising, and felt to pass out at Saturday morning' when she was trying to get her shoes. She immediately called her
spring fitter helper and she did recommended to reach to ER on Saturday. She was discharged however her D-dimer was elevated so was called by ER to return for imaging and further workup. There is no history of blood clots, hematuria, hematochezia. Her
last bowel movement was yesterday morning. There was no family history, she did not recently travel on the flight. No family history for clotting disorders, she is a non-smoker, did not use any medications or recreational drug. Recently she was
switched from Zoloft to baby aspirin after her 8 months ago. She was on acetaminophen 325 mg, multivitamins, quetiapine 100 mg, aspirin 81 mg at the time of admission. We held the baby aspirin at the time of her admission and started on
heparin 25,000 units/250 mL. Initial iron study workup was done indicated iron deficiency anemia. Pre Parole Counseling Aide, spring fitter helper, MFM consulted. Parts Counter Clerk recommended NST stress test which was reassuring and reactive. Pre Parole Counseling Aide recommended her
to do outpatient follow-up and discharging her with Lovenox 100 mg 2 times a day. Recommended the patient to follow-up outpatient spring fitter helper she is [facility] with [facility]. She is stable at the time of discharge.IMPORTANT:
If your symptoms worsen when you get home, go to the Emergency Room if you cannot reach a doctor, or call 911
Important imaging findings :
On 08/[address] scan finding:
Right upper lobe and right lower lobe pulmonary emboli. Moderate clot present. No evidence of right heart strain.
If the patient has emphysema, patient should be assessed for an annual low dose lung cancer CT program, as pulmonary emphysema is an independent risk factor for lung cancer.
Critical value: Pulmonary embolus.
On 08/03 ultrasound peripheral vascular impression:
No sonographic evidence for lower extremity venous thrombosis.
On 08/02 chest x-ray: No acute disease of the chest
Procedure findings : None
Discharge Plan
-
Patient Disposition: Home (Routine Discharge)
Discharge Diagnosis/Procedures: Pulmonary Embolism secondary to induced hypercoagulable state
BULMARO secondary to Gastric bypass
Condition: Fair
Diet: No restrictions and As tolerated
Activity: No restrictions
Driving Restrictions: As prior to admission
Bathing Restrictions: None
Referrals:
Marixa Parker DO [Family Provider, Gynecology]
Rahul Urias MD [Consulting Staff, Gynecology]
Akash Hoang MD [Active, Hematology / Oncology]
Additional Discharge Medication Instructions: Lovenox weight-based 100 mg twice daily
Prefer twice daily dosing to once a day dosing given lower peak value and the known higher creatinine clearance with
Patient has previously injected herself following her bariatric surgery but quite remotely
Follow-up in the Hematology office to review thrombophilia assessment postdelivery.
Follow up with her OBG, MFM outpatient for her NST
Prescriptions:
New
enoxaparin [Lovenox] 100 mg/mL syringe
100 mg SC Q12H Qty: 10 1RF
Continued
acetaminophen 325 mg Tablet
650 mg PO Q4HPRN PRN (Reason: mild pain) Qty: 0 0RF
quetiapine [Seroquel] 100 mg Tablet
100 mg PO DAILY
rugzjkhdmixx-Ru-cfuq-minerals Combo Pack
1 pkg PO DAILY
aspirin 81 mg Tablet
81 mg PO DAILY Qty: 0 0RF
Discharge Orders:
Discharge Patient (As Directed); Ordered 08/05/25
Ordered By: Mayte Luna
Discharge Date and Time
Print Language: [place]
== END 2025-08-05 17:30 | disposition home or self-care (01) ==
LOC: 4 WEST ACU 18:19
PROVIDERS: Physician Assistant; ADMITTING PHYSICIAN Hospitalist; ATTENDING PHYSICIAN Internal Medicine; CONSULT PHYSICIAN Student in an Organized Health Care Education/Training Program; EMERGENCY PHYSICIAN Student in an Organized Health Care Education/Training Program; FAMILY PHYSICIAN Obstetrics & Gynecology; OTHER PHYSICIAN Internal Medicine Hematology & Oncology
DX: O88.213 Thromboembolism in pregnancy, third trimester (principal); I26.99 Other pulmonary embolism without acute cor pulmonale; R06.02 Shortness of breath; O99.113 Other diseases of the blood and blood-forming organs and certain disorders involving the immune mechanism complicating pregnancy, third trimester; D68.59 Other primary thrombophilia; O09.523 Supervision of elderly multigravida, third trimester; O09.293 Supervision of pregnancy with other poor reproductive or obstetric history, third trimester; Z3A.30 30 weeks gestation of pregnancy; O99.213 Obesity complicating pregnancy, third trimester; R11.0 Nausea; O99.843 Bariatric surgery status complicating pregnancy, third trimester; O26.893 Other specified pregnancy related conditions, third trimester; O99.343 Other mental disorders complicating pregnancy, third trimester; F32.A Depression, unspecified; F41.9 Anxiety disorder, unspecified; M79.661 Pain in right lower leg; R79.89 Other specified abnormal findings of blood chemistry; O99.013 Anemia complicating pregnancy, third trimester; D50.9 Iron deficiency anemia, unspecified; Z79.82 Long term (current) use of aspirin; Z91.013 Allergy to seafood; Z80.41 Family history of malignant neoplasm of ovary; Z88.5 Allergy status to narcotic agent; Z79.899 Other long term (current) drug therapy
CPT/HCPCS: 59025; 71275; 80053; 84484; 85025; 85027; 85730; 93005; 93306; 93970; 96361; 96365; 99291; G0378; Q9967

== ENCOUNTER → 2025-08-16 14:28 | Outpatient (REF) | payer BC, SELFPAY | LOC: PNTC 14:28 | PROVIDERS: ATTENDING PHYSICIAN Obstetrics & Gynecology | DX: O99.013 Anemia complicating pregnancy, third trimester (principal); O09.523 Supervision of elderly multigravida, third trimester; O99.213 Obesity complicating pregnancy, third trimester; O99.843 Bariatric surgery status complicating pregnancy, third trimester; O34.211 Maternal care for low transverse scar from previous cesarean delivery; O88.813 Other embolism in pregnancy, third trimester | CPT/HCPCS: 59025; 76815 ==

== ENCOUNTER → 2025-08-23 10:25 | Outpatient (REF) | payer BC, SELFPAY | LOC: PNTC 10:25 | PROVIDERS: ATTENDING PHYSICIAN Obstetrics & Gynecology; OTHER PHYSICIAN Student in an Organized Health Care Education/Training Program | DX: O09.523 Supervision of elderly multigravida, third trimester (principal); O99.213 Obesity complicating pregnancy, third trimester; O99.843 Bariatric surgery status complicating pregnancy, third trimester; O34.211 Maternal care for low transverse scar from previous cesarean delivery; O88.813 Other embolism in pregnancy, third trimester | CPT/HCPCS: 59025; 76816 ==

== ENCOUNTER → 2025-08-30 08:04 | Outpatient (REF) | payer BC, SELFPAY | LOC: PNTC 08:04 | PROVIDERS: ATTENDING PHYSICIAN Obstetrics & Gynecology | DX: O09.523 Supervision of elderly multigravida, third trimester (principal); O99.213 Obesity complicating pregnancy, third trimester; O99.843 Bariatric surgery status complicating pregnancy, third trimester; O34.211 Maternal care for low transverse scar from previous cesarean delivery; O88.813 Other embolism in pregnancy, third trimester; O99.013 Anemia complicating pregnancy, third trimester | CPT/HCPCS: 76815 ==

== ENCOUNTER 2025-09-02 17:00 | Emergency (ER) | payer BC, SELFPAY ==
[2025-09-02 17:18] VITALS: BP 114/74
[2025-09-02 17:42] VITALS: BP 109/77
[2025-09-02 17:58] LABS: Hematocrit 37.8 % (37.0-47.0); Hemoglobin 12.9 g/dL (12.0-16.0); Mean Corp Hgb Conc. 34.1 g/dL (33.0-37.0); Mean Corpuscular Volume 90.9 fL (81.0-99.0); Nucleated Red Blood Cells % 0 %; Platelet Count 280 10^3/uL (130-400); Red Cell Dist. Width 14.4 % (11.5-14.5)
[2025-09-02 18:00] VITALS: BP 104/68
[2025-09-02 18:08] LABS: APTT 25.7 Sec (23.4-35.0); INR 1.11; PT 14.1 Sec (11.4-14.6)
[2025-09-02 18:11] LABS: ALT (SGPT) 41 U/L (0-35); AST (SGOT) 34 U/L (14-36); Albumin 3.3 g/dl (3.5-5.0); Alkaline Phosphatase 85 U/L (38-126); Blood Urea Nitrogen 8 mg/dl (7-17); Calcium 8.4 mg/dl (8.4-10.2); Carbon Dioxide 17 mmol/L (22-30); Chloride 105 mmol/L (98-107); D-Dimer 0.83 ug/mlFEU (0.00-0.50); Glucose 63 mg/dl (70-99); Potassium 4.0 mmol/L (3.5-5.1); Sodium 130 mmol/L (135-145); Total Protein 5.8 g/dl (6.3-8.2); eGFR > 60.00
--- NOTE | 2025-09-02 18:14 | ED.GENMED ---
History of Present Illness
General
Chief Complaint: Breathing Problem
Source: patient
Exam Limitations: none
Time Seen by Provider: 09/02/25 17:26
Nursing documentation reviewed up to this point in time: agreed with
History of Present Illness
History of Present Illness:
40-year-old female with a past medical history of PE on Lovenox who is currently 35 weeks (follows with [facility]); she presents to the ER for evaluation of shortness of breath. Patient was notably admitted to this
hospital in July with shortness of breath and was found to have an acute pulmonary embolism. She was treated with Lovenox and discharged. She says symptoms had improved. She says that over the past 2 or 3 days she has noted some increased
shortness of breath particular on exertion that she says is very similar to symptoms she had prior to diagnosis of PE. She has not had any cough. Denies any chest pain. Has not noticed any unusual swelling in the legs. She has been compliant
with her Lovenox. Discussed with her PETROPHYSICAL ENGINEER who referred her to the ER for further assessment.
Past History
Past History
ED Past Medical History: Psychiatric (Anxiety)
ED Past Surgical History: Other (Bariatric)
Social History
Tobacco: Non-smoker
Alcohol: None
Drug: None
Personal:
Living: with family
Employment: Employed
Review of Systems
Review of Systems
All Other Systems: ROS reviewed and negative except as documented in HPI and ROS
Constitutional: Denies fever or chills
Respiratory: Reports trouble breathing; Denies cough
Cardiac: Denies chest pain or syncope
ABD/GI: Denies abdominal pain, nausea or vomiting
: Denies flank pain
Musculoskeletal: Denies edema, neck pain or back pain
Neurological: Denies headache
Phy Exam
Physical Exam
Physical Exam:
General: Awake, alert; no acute distress
Head: Normocephalic, atraumatic
Eyes: Conjunctiva normal, sclera anicteric
Throat: Airway intact, handling secretions
Neck: Trachea midline
Lungs: Clear to auscultation bilaterally, no wheezing, rales, rhonchi
Heart: Regular rate and rhythm, no murmurs, gallops, or rubs
Abd: Soft, appropriate size for gestational age and nontender; some bruising noted at Lovenox injection site in the lower abdomen
Neuro: Grossly intact
Skin: Warm and dry
Extremities: No edema in extremities, warm and well-perfused
Scores
Heart Failure Risk
Heart Failure Risk Score: Not Applicable
Heart Score for Chest Pain Patients
STEMI patient?: Not applicable
Withdrawal Assessment of Alcohol
Withdrawal Assessment Completed?: Not applicable
Course
Orders/Labs/Results
Orders:
Orders
09/02/25 17:46
Electrocardiogram (*1) Urgent
Reason for Study: Shortness of Breath
EKG- Treatment ONCE
09/02/25 17:48
Complete Blood Count/With Diff Urgent
Comprehensive Metabolic Panel Urgent
D-Dimer Urgent
NT-proBNP Urgent
PTT Urgent
Prothrombin Time Urgent
Troponin I Urgent
09/02/25 18:13
CT Chest PE Study Urgent
Comment:
Reason For Exam: worsening sob, known PE
Abnormal Lab Results
09/02/25
17:48
RBC 4.16 L 10^6/uL
(4.20-5.40)
Absolute Monos (auto) 0.7 H 10^3/uL
(0.1-0.6)
D-Dimer 0.83 H ug/mlFEU
(0.00-0.50)
Sodium 130 L mmol/L
(135-145)
Carbon Dioxide 17 L mmol/L
(22-30)
Creatinine 0.4 L mg/dL
(0.6-1.0)
Glucose 63 L mg/dl
(70-99)
ALT 41 H U/L
(0-35)
Total Protein 5.8 L g/dl
(6.3-8.2)
Albumin 3.3 L g/dl
(3.5-5.0)
09/02/25 17:48
09/02/25 17:48
Vital Signs
Initial and Last Documented VS:
Initial Vital Signs
Temp Pulse Resp BP Pulse Ox
37.0 C 80 16 114/74 97
09/02/25 17:18 09/02/25 17:18 09/02/25 17:18 09/02/25 17:18 09/02/25 17:18
Last Documented Vital Signs
Temp Pulse Resp BP Pulse Ox
37.0 C 70 16 98/65 98
09/02/25 17:18 09/02/25 20:06 09/02/25 20:06 09/02/25 19:00 09/02/25 20:06
MDM/Problems Addressed
Differential Diagnosis Includes:
Pulmonary embolism, symptoms of late , anemia, pneumonia less likely clinically
MDM/Problems Addressed:
40-year-old female who is G2, P1 35 weeks and who was diagnosed with PE last month currently treated with Lovenox returns to the ER with shortness of breath over the past few days she says similar to symptoms prior to PE diagnosis. She has
been compliant with Lovenox. Her vital signs thankfully are normal. Physical exam is as above. EKG sinus rhythm, labs here were reviewed: CBC no significant anemia, chemistry no clinically significant abnormalities�marginal hypoglycemia given
oral glucose. Her D-dimer is still elevated although not as significantly as previous. Discussed the case at length with pulmonology and this complicated case of a patient potentially requiring repeat CT to rule out Lovenox failure�at
this point no ancillary studies we will completely rule out failure of Lovenox which would be a potentially life-threatening issue�although there is a risk with a second CT in risk with radiation is less in late . At this point
training officer and myself both feel that the risk benefit ratio likely in favor of repeating CT to completely rule out failure of Lovenox and another PE. I had a long discussion with the patient and she agrees. Will proceed with repeat CT chest.
CT chest reviewed negative for PE and old PEs no longer visible, no other acute abnormalities. Patient has been clinically stable throughout ED observation. Stable for discharge. I did discuss with PETROPHYSICAL ENGINEER to provide update. Patient has planned
follow-up with hematology tomorrow. Spoke about return precautions and all questions answered.
Chronic conditions affecting care:
Pulmonary embolism
*Radiology
Radiology exam reviewed: radiology read reviewed
*Pulse Oximetry
SaO2: 97
Oxygen Mode of Delivery: Room air
Patient hypoxic: no (97%)
*EKG
Interpreted by ED Provider?: Yes
Heart Rate: 82
Rate: normal
Rhythm: sinus
[place]: normal axis
Interval: normal interval
QRS Pattern: normal QRS
Ischemia: no ischemia
*Critical Care Note
Total Time (30-74mins, 75-104mins- exclusive of procedures): Not Applicable
Data Reviewed
Review of Other/Old Records Reveals: Labs and Records
Source: patient, records and physician (PETROPHYSICAL ENGINEER)
Further Testing Considered But Not Given:
Considered echocardiogram, DVT ultrasound of the legs
Patient Management
Discussion with other providers: Cashier Credit (Discussed with training officer, discussed with PETROPHYSICAL ENGINEER)
ED Attending Note
-
Portions of this chart may have been created with voice recognition software.� Occasional wrong word or��sound alike� substitutions may have occurred due to the inherent limitations of voice recognition software.
Discharge Plan
Departure
Patient Disposition: Home (Routine Discharge)
Date of Disposition: 09/02/25
Time of Disposition: 20:42
Patient with high blood pressure during this ER visit?: No
Discharge Problem:
Shortness of breath during
Instructions: Shortness of Breath (Dyspnea) (DC)
Prescriptions:
No Action
acetaminophen 325 mg Tablet
650 mg PO Q4HPRN PRN (Reason: mild pain) Qty: 0 0RF
quetiapine [Seroquel] 100 mg Tablet
100 mg PO DAILY
kmgngphbgaem-Pr-dvtd-minerals Combo Pack
1 pkg PO DAILY
aspirin 81 mg Tablet
81 mg PO DAILY Qty: 0 0RF
Referrals:
Abeba Banuelos DO [Family Provider, Family Practice]
Activity Restrictions/Additional Instructions:
You should follow-up with your special education itinerant teacher tomorrow as scheduled. You should follow-up with your PETROPHYSICAL ENGINEER as scheduled as well. If your symptoms are worsening please return to the ER.
Thank you for visiting the Emergency Department at [facility].
1. Please schedule a follow up appointment as directed. Call first thing tomorrow morning to make an appointment.
2. If indicated, please take your medications as instructed and indicated on discharge paperwork.
3. If any of your symptoms do not improve, or persist, or become more severe within 6-12 hours, please return to the emergency department for further care.
4. Please return to the emergency department if you develop a headache, neck pain/stiffness, fever greater than 100.4F, chest pain, shortness of breath, persistent nausea, vomiting, slurred speech, difficulty walking, numbness/tingling, weakness,
signs of infection or any other symptoms that are worrisome to you.
Please call [phone] if you have any questions.
Interventions
Interventions:
*General Assessment Last Done: 09/02/25 17:18
*Neglect/Abuse Screening Last Done: 09/02/25 20:05
*ED COVID-19 Vaccine History Last Done: 09/02/25 18:24
*ED Influenza Vaccine History Last Done: 09/02/25 18:24
[facility] Fall Risk Assessment Tool Last Done: 09/02/25 20:05
*Risk Screen - Suicide (C-SSRS) Last Done: 09/02/25 17:18
ED- Cardiac Assessment Last Done: 09/02/25 17:45
ED- Pulmonary Assessment Last Done: 09/02/25 17:45
Discharge Date and Time
Print Language: JAPANESE
[2025-09-02 18:23] LABS: Troponin I 0.022 ng/ml
[2025-09-02 19:00] VITALS: BP 98/65
[2025-09-02 20:09] VITALS: BMI 34.6
== END 2025-09-02 20:53 | disposition home or self-care (01) ==
LOC: EMR 17:00
PROVIDERS: EMERGENCY PHYSICIAN Emergency Medicine; FAMILY PHYSICIAN Family Medicine; REFERRING PHYSICIAN Obstetrics & Gynecology
DX: O26.893 Other specified pregnancy related conditions, third trimester (principal); R06.02 Shortness of breath; O09.523 Supervision of elderly multigravida, third trimester; Z86.711 Personal history of pulmonary embolism; Z3A.35 35 weeks gestation of pregnancy
CPT/HCPCS: 99284; 71275; 80053; 83880; 84484; 85025; 85379; 85610; 85730; 93005; Q9967

== ENCOUNTER → 2025-09-06 14:49 | Outpatient (REF) | payer BC, SELFPAY | LOC: PNTC 14:49 | PROVIDERS: ATTENDING PHYSICIAN Obstetrics & Gynecology | DX: O09.523 Supervision of elderly multigravida, third trimester (principal); O99.213 Obesity complicating pregnancy, third trimester; O99.843 Bariatric surgery status complicating pregnancy, third trimester; O34.211 Maternal care for low transverse scar from previous cesarean delivery; O88.813 Other embolism in pregnancy, third trimester; O99.013 Anemia complicating pregnancy, third trimester; O40.3XX0 Polyhydramnios, third trimester, not applicable or unspecified | CPT/HCPCS: 76816 ==

== ENCOUNTER → 2025-09-07 16:44 | Outpatient (REF) | payer BC, SELFPAY | LOC: CLAB 16:44 | PROVIDERS: ATTENDING PHYSICIAN Student in an Organized Health Care Education/Training Program | DX: Z36.85 Encounter for antenatal screening for Streptococcus B (principal); Z34.90 Encounter for supervision of normal pregnancy, unspecified, unspecified trimester | CPT/HCPCS: 87070 ==

== ENCOUNTER 2025-09-10 11:39 | Observation (INO) | payer BC, SELFPAY ==
[2025-09-10 11:53] VITALS: BP 107/73; BMI 35.4
== END 2025-09-10 12:51 | disposition home or self-care (01) ==
LOC: LDRP 11:39
PROVIDERS: ADMITTING PHYSICIAN Obstetrics & Gynecology; FAMILY PHYSICIAN Family Medicine
DX: Z03.79 Encounter for other suspected maternal and fetal conditions ruled out (principal)
CPT/HCPCS: 36415; 86850; 86900; 86901

== ENCOUNTER → 2025-09-13 13:46 | Outpatient (REF) | payer BC, SELFPAY | LOC: PNTC 13:46 | PROVIDERS: ATTENDING PHYSICIAN Obstetrics & Gynecology | DX: O09.523 Supervision of elderly multigravida, third trimester (principal); O99.213 Obesity complicating pregnancy, third trimester; O99.843 Bariatric surgery status complicating pregnancy, third trimester; O34.211 Maternal care for low transverse scar from previous cesarean delivery; O88.813 Other embolism in pregnancy, third trimester; O99.013 Anemia complicating pregnancy, third trimester | CPT/HCPCS: 59025; 76815 ==